=== PATIENT | female | born 1955 | race Caucasian/White ===

== ENCOUNTER 2018-08-18 09:37 | Observation (INO) ==
--- NOTE | 2018-08-18 10:17 | XRay Report ---
XR chest 1V portable CLINICAL HISTORY: 63 years-old Female presenting with weakness. TECHNIQUE: Portable upright AP view of the chest was obtained. COMPARISON: 05/25/2018. FINDINGS: Atherosclerosis of the aortic arch. Cardiac silhouette enlarged. No focal opacity. No large effusion or pneumothorax. Degenerative changes of the thoracic spine. Degenerative changes of the glenohumeral joints. Osteopenia may be present. Upper abdomen normal. IMPRESSION: 1. No acute cardiopulmonary disease. Electronically signed by: Michael Christine M.D. 08/18/2018 10:16 AM
[2018-08-18] MEDS ORDERED: diazePAM 5 MG TABLET PO ONE (10:25)
[2018-08-18 10:29] LABS: Basophils # (auto) 0.02 K/uL (0-0.2); Basophils % (auto) 0.3 %; Eosinophils # (auto) 0.02 K/uL (0-0.5); Eosinophils % (auto) 0.3 %; Hematocrit (blood only) 33.5 % (37-47); Hemoglobin 11.3 g/dL (12.0-16.0); Immature Granulocytes # (auto) 0.03 K/uL (0.00-0.02); Immature Granulocytes % (auto) 0.4 %; Lymphocytes # (auto) 0.32 K/uL (1.2-3.4); Lymphocytes % (auto) 4.7 %; Mean Corpuscular Hgb Conc 33.7 g/dL (32-36); Mean Corpuscular Volume 104.7 fL (80-100); Mean Platelet Volume 9.5 fL (7.4-10.4); Monocytes # (auto) 0.71 K/uL (0.11-0.59); Monocytes % (auto) 10.3 %; Neutrophils # (auto) 5.76 K/uL (1.4-6.5); Platelet Count 109 K/uL (130-400); RDW Coefficient of Variation 13.4 % (11.5-14.5); RDW Standard Deviation 50.7 fL (36.4-46.3); White Blood Count 6.86 K/uL (4.8-10.8)
[2018-08-18] MEDS ORDERED: MULTI-VITAMIN INFUSION 10 ML, THIAMINE HCL 100 MG, FOLIC ACID 1 MG in SODIUM CHLORIDE 0... IV SCH ×2 (10:30→10:45)
[2018-08-18] MEDS ORDERED: DIAZEPAM 5 MG/ML INJ 10ML VIAL IV STA (10:34)
[2018-08-18 10:38] LABS: INR 1.1 (0.9-1.1); Prothrombin Time 11.1 Seconds (9.0-12.0)
--- NOTE | 2018-08-18 10:41 | Emergency Department Note ---
ED Visit Note I assisted Dr. Nation in the care of the patient. See attending note for more information. . Resident Activity Tracking Resident Involvement: Resident Care Provided Care Provided: Adult ED
[2018-08-18 10:47] LABS: Alanine Aminotransferase 58 U/L (12-78); Albumin Level 2.9 gm/dl (3.4-5.0); Aspartate Aminotransferase 81 U/L (15-37); Blood Urea Nitrogen 12 mg/dl (7-18); Calcium 8.5 mg/dl (8.5-10.1); Carbon Dioxide 26 mmol/L (21-32); Chloride 95 mmol/L (98-107); Est GFR (African American) 72.8; Est GFR (Non-African American) 62.9; Glucose 158 mg/dl (70-99); Magnesium 1.8 mg/dl (1.8-2.4); Potassium 3.5 mmol/L (3.5-5.1); Sodium 133 mmol/L (136-145)
[2018-08-18 10:57] LABS: Albumin Globulin Ratio 0.6 (0.9-2); Alkaline Phosphatase 251 U/L (45-117); Bilirubin,Total 1.7 mg/dl (0.2-1); Globulin 4.7 gm/dl (2.5-4.0); Total Protein 7.6 gm/dl (6.4-8.2); Troponin I < 0.015 ng/ml (0-0.045)
--- NOTE | 2018-08-18 13:13 | CT Scan Report ---
CT head/brain wo con CLINICAL HISTORY: 63 years-old Female presenting with weakness, falls. TECHNIQUE: Multidetector CT imaging of the head was performed without the use of intravenous contrast . IV contrast: None. One or more dose lowering techniques were used consistent with the principles of ALARA (as low as reasonably achievable), including automatic exposure control, mA or kV adjustment t o individual patient size, and/or use of iterative reconstruction. COMPARISON: None. CT DOSE (mGy.cm): The estimated cumulative dose is 537.48 mGy.cm. FINDINGS: Reconciler topogram: Unremarkable. Proportional ventricular and sulcal prominence, likely age-related parenchymal volume loss. No hemorr cris. Brain parenchyma normal in appearance with preserved gibson-white differentiation. No acute alejandrina torial infarct. No mass effect or midline shift. No extra-axial fluid collection. Paranasal sinuses a nd mastoid air cells clear. Calvarium intact. IMPRESSION: 1. No acute intracranial abnormality. Electronically signed by: Michael Christine M.D. 08/18/2018 1:12 PM
[2018-08-18] MEDS ORDERED: cephALEXin 500 MG CAP PO STA (13:19)
[2018-08-18 14:22] LABS: Appearance Urine Cloudy (Clear); Bacteria Urine Automated Negative (Negative); Bilirubin Urine Negative (Negative); Blood Urine Negative (Negative); Color Urine Yellow; Epithelial Cell Urine Auto >30 /lpf (0-5); Glucose Urine UA Negative (Negative); Ketones Urine Trace (Negative); Leukocyte Esterase Urine Trace (Negative); Nitrite Urine Negative (Negative); Protein Urine Negative (Negative); Urobilinogen Urine Negative (Negative)
[2018-08-18] MEDS ORDERED: cephALEXin 250 MG CAP PO ONE (14:32)
[2018-08-18 14:39] LABS: RBC Urine Automated 0-4 /hpf (0-4)
--- NOTE | 2018-08-18 14:44 | History & Physical Report ---
Date of Service August 18, 2018 Assessment & Plan (1) Ambulatory dysfunction: (2) Frequent falls: This is a 63-year-old female who has a significant past medical history of HTN, asthma, pre-DM, history of splenic artery aneurysm status post coil closure with stent placement 05/17/2018, history of EtOH abuse, Elevated transaminitis, thrombocytopenia, diastolic dysfunction who presents to [facility] ED secondary to difficulty with ambulation x24 hours and frequent falls x1 month. Please refer to Dr. Sexton addendum for assessment and plan (3) Alcohol abuse: (4) HTN (hypertension): (5) Macrocytic anemia: (6) Thrombocytopenia: (7) Transaminitis: (8) Asthma: (9) DVT prophylaxis: History of Present Illness Chief Complaint: Difficulty walking x1 day; frequent falls x1 month. Primary Care Provider: Comfort Mendoza DO This is a 63-year-old female who has a significant past medical history of HTN, asthma, pre-DM, history of splenic artery aneurysm status post coil closure with stent placement 05/17/2018, history of EtOH abuse, Elevated transaminitis, thrombocytopenia, diastolic dysfunction who presents to [facility] ED secondary to difficulty with ambulation x24 hours and frequent falls x1 month. Patient [place] and was having significant difficulty walking yesterday. She was unable to get up from the bed and even walk to the bathroom without significant assistance from her . Her symptoms are still present this morning therefore they opted to present to the ED. Currently is not at bedside. According to patient she has been having off-and-on difficulty with walking and frequent falls for the past month describing it as, "sporadic." For the past month she has been using a cane for assist device. She has 3 known falls in July. Also complains of significantly increased bruising since being started on Plavix in May as well as numerous lesions to her lower legs from the falls. She denies any recent illness, fever, chills, sweats, lightheadedness, dizziness, syncope, chest pain, shortness of breath, RINCON, palpitations, nausea, vomiting, hemoptysis, hematemesis, abdominal pain, diarrhea. Her last bowel movement was yesterday and she denies any melena, hematochezia. She has been urinating without difficulty. Denies any dysuria, hematuria, increased urgency or frequency with urination. Overall her appetite has been decreased for the past 24 hours. She feels her symptoms are secondary to her not eating and states her appetite has returned and is requesting food. She denies any illicit alcohol or drug use. She says her last drink was one glass of wine approximately 1 month ago. She elicits that she was hospitalized November 2017 with pancreatitis and at that time opted to cut down on her drinking. A proximally 1 year ago she states she was drinking 1 to 2 glasses of wine daily. According to report from Dr. Carlson, encountered provider outside of room and feels that patient is not being truthful with her drinking. It is reported that he feels that she has been sneaking or closet drinking. In ED patient's lab studies were significant for macrocytic anemia H&H 11.3 and 33.5, WBC 6.86, platelet 109, sodium 133, potassium 3.5, BUN 12, creatinine 0.95, T bili 1.7, AST 81, alk phos 258, lipase 45, TSH WNL, urinalysis with trace leukocyte esterase, WBC, epithelial cells, EtOH negative. Head CT and chest x-ray were performed and revealed no acute abnormality. Allergies Allergy/AdvReac Type Severity Reaction Status Date / Time No Known Allergies Allergy Unverified 08/18/18 10:38 Home Medications Home Medications Medication Instructions Recorded Confirmed Type Centrum Silver Women 1 tab PO QAM 12/05/17 08/18/18 History cetirizine [Zyrtec] 10 mg PO DAILY PRN 12/05/17 08/18/18 History fluticasone propion-salmeterol 1 inh INHALATION BID 12/05/17 08/18/18 History [Advair Diskus] triamterene-hydrochlorothiazid 1 tab PO DAILY 12/05/17 08/18/18 History [Maxzide] albuterol sulfate 1 puff INHALATION DIRECTED PRN 05/25/18 08/18/18 History calcium carbonate-vitamin D3 1 tab PO DAILY 05/25/18 08/18/18 History [Calcium 600 + D(3)] clopidogrel 75 mg PO QAM 05/25/18 08/18/18 History simvastatin 20 mg PO HS 05/25/18 08/18/18 History verapamil 360 mg PO DAILY 08/18/18 08/18/18 History Past Med/Surg History Medical History Diastolic dysfunction (Chronic) Macrocytic anemia (Chronic) Thrombocytopenia (Chronic) Pre-diabetes (Chronic) Alcohol dependence (Chronic) Frequent falls (Chronic) Osteoarthritis (Chronic) Asthma (Chronic) Transaminitis (Chronic) HTN (hypertension) (Chronic) Surgical History History of breast biopsy (Chronic) History of tubal ligation (Chronic) Previous section (Resolved) Family History Father , age 49 Coronary heart disease, Onset Age: 49 Mother Glaucoma Other Heart disease Social History Preferred Language: Hebrew Communication Ability: Effective Beliefs That Will Affect Care: Pentecostalism Pentecostalism Beliefs: Gnosticist Current Living Situation: Spouse Feels Safe at Home: Yes Smoking Status: Never smoker Hx Alcohol Use: Yes Alcohol type: wine Alcohol Intake Frequency Comment: last drink 1 month ago per pt; prior etoh abuser Hx Substance Use: No Review of Systems Review of Systems: As noted per HPI, 10 systems reviewed and negative unless noted above. Physical Exam Physical Exam: Gen: Petite, thin, female, sitting up in bed, NAD, flat affect, answers questions appropriately Head: Normocephalic, Atraumatic Eyes: Sclera normal, no conjunctival injection, PERRLA, EOMI ENT: Gross hearing intact, normal pharynx, mucous membranes moist Neck: supple, no adenopathy, No JVD, no bruit, Resp: Clear to auscultation b/l, no wheeze, rales, rhonchi. 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 Extremities: No edema bilaterally Skin: warm, moist, no rash, negative turgor, cap refill < 2sec, bilateral distal lower extremity numerous skin tears along lateral gastrocnemius and tibial surface in various stages of healing, surrounding erythema, no warmth Neuro: Alert and oriented x 3, speech normal, flat mood/affect, cran nerve 2-12 intact grossly : deferred Results & Data Vital Signs (Past 12 Hours) Vital Signs Temp Pulse Pulse Resp BP BP Pulse Ox 08/18/18 11:43 79 21 117/76 99 08/18/18 11:26 85 18 100 08/18/18 09:40 37.0 C 97 H 22 131/79 100 Laboratory Results Short CBC 08/18/18 08/18/18 08/18/18 Range/Units 10:18 10:18 10:18 WBC 6.86 (4.8-10.8) K/uL Hgb 11.3 L (12.0-16.0) g/dL Hct 33.5 L (37-47) % MCV 104.7 H (80-100) fL Plt Count 109 L (130-400) K/uL Sodium 133 L (136-145) mmol/L Creatinine 0.95 (0.6-1.2) mg/dl Lipase 485 H (73-393) U/L BMP 08/18/18 10:18 Sodium 133 L Potassium 3.5 Chloride 95 L Carbon Dioxide 26 BUN 12 Creatinine 0.95 Glucose 158 H Calcium 8.5 Cardiac Enzymes 08/18/18 Range/Units 10:18 Troponin I < 0.015 (0-0.045) ng/ml Liver Function 08/18/18 Range/Units 10:18 Total Bilirubin 1.7 H (0.2-1) mg/dl AST 81 H (15-37) U/L ALT 58 (12-78) U/L Alkaline Phosphatase 251 H (45-117) U/L Albumin 2.9 L (3.4-5.0) gm/dl Urine 08/18/18 Range/Units 13:30 Urine Color Yellow Urine Appearance Cloudy A (Clear) Urine pH 7.0 (4.5-7.5) Ur Specific Gilman 1.010 (1.000-1.030) Urine Protein Negative (Negative) Urine Glucose (UA) Negative (Negative) Diagnostic Findings Head CT: IMPRESSION: 1. No acute intracranial abnormality. CXR: IMPRESSION: 1. No acute cardiopulmonary disease. Medications Administered Discontinued Medications Cephalexin HCl (Keflex) 500 mg PO NOW STA Stop: 08/18/18 13:20 Last Admin: 08/18/18 14:38 Dose: 500 mg Documented by: [id number] Cephalexin HCl (Keflex) Confirm Administered Dose 500 mg PO .STK-MED ONE Stop: 08/18/18 14:33 Last Admin: 08/18/18 14:39 Dose: Not Given Documented by: [id number] Diazepam (Valium) 10 mg PO NOW ONE Stop: 08/18/18 10:26 Last Admin: 08/18/18 11:06 Dose: 10 mg Documented by: [id number] Diazepam (Valium) 10 mg IV NOW STA Stop: 08/18/18 10:35 Last Admin: 08/18/18 12:54 Dose: Not Given Documented by: [id number] Multivitamins 10 ml/ Thiamine HCl 100 mg/ Folic Acid 1 mg/Sodium Chloride 1,011.2 mls @ 1,011.2 mls/hr IV .Q1H KRISTINA Stop: 08/18/18 11:29 Last Infusion: 08/18/18 12:15 Dose: 0 mls/hr Documented by: [id number] Admin: 08/18/18 11:11 Dose: 1,011.2 mls/hr Documented by: [id number] Multivitamins 10 ml/ Thiamine HCl 100 mg/ Folic Acid 1 mg/Sodium Chloride 1,011.2 mls @ 1,011.2 mls/hr IV .Q1H KRISTINA Stop: 08/18/18 11:44 Last Admin: 08/18/18 12:54 Dose: Not Given Documented by: [id number] ECG Rate (beats per minute): 83 Rhythm: normal sinus Findings: + prolonged QT (488) Code Status & VTE Plan Code Status Full Code VTE Prophylaxis Plan Reason for no VTE drug order: Contraindicated (pt with freq falls numerous areas of bruising) Supervising Physician Co-Signing Physician Notes Patient was seen and evaluated with PAUL Castillo. Patient is a 63 year old F with hx of HTN, Asthma, Splenic artery aneurysm s/p coil closure with stent placement on 05/17/18, hx of Alcohol abuse, diastolic dysfunction, was brought in to ED by for generalized weakness- worse x 24 hours, frequent falls x 1 month Patient has hx of alcoholism for years (mostly in denial phase), says her last drink was 1 month ago, but thinks she might be drinking some of his myla. C/o Frequent falls with bruises in last month. Says she feels off balance, generalized weakness which makes her fall. Unable to get up by herself when this happens. [place] family at their vacation home when she felt the same and brought her to ED. Shaky, tremors + . Doesnt seem like localized weakness. No fever, chills, nausea, vomiting, abdominal pain, headaches, sensory loss, urinary or bladder incontinence, blurry vision. EXAM Gen- Tremulous + Shaky +, AAAX3 HEENT- No icterus apparent Neck- No JVD Lungs- Clear, no wheezing Heart- S1, S2 normal Abd- Soft, non tender, non distended, BS present Neuro- AAOX3, Power 5/5 all ext, Cranial nerves intact, no sensory issues Ext- No edema Skin- Multiple bruises, ecchymosis all over the extremities B/L Lower extremities- Left - Ulcer with slough + mild tenderness surrounding area, Multiple wounds in right coburn area S/P Falls ASSESSMENT/ PLAN: FREQUENT FALLS/GENERALIZED WEAKNESS Patient is a poor historian. Has hx of alcoholism (says last drink a month ago, but per concerned that she continues to sip his myla). Unreliable history. Does have significant tremors, shakiness . Has had 3 falls last month- says feels out of balance, weakness to extent that unable to hold herself causing fall. Denies any associated symptoms. No neurological deficits -Etiology of Fall- Unclear. Could be Alcoholism- Intoxication/Withdrawal ? as unreliable whether quit or not. CT head- negative for acute abn, Less likely to be stroke given presentation but will rule out as poor historian. MRI brain ordered. -Ordered- MRI brain, Vit b12, b1, ESR, CRP -IV Fluids- Received banana bag, MV, Folic acid, thiamine -PT/OT MULTIPLE BRUISES/ECCHYMOSIS/WOUNDS FROM FALLS -All over extremities -B/L Lower extremity wounds- ED gave keflex. Will empirically continue with Keflex and local wound care to help healing ALCOHOLISM For years. Quit a month ago per patient, but per likely not. -Elevated LFTs with ALP 251, Albumin 2.9, INR 1.1. -Per patient - fatty liver. Will repeat US abdomen and add direct bilirubin THROMBOCYTOPENIA Chronic sec to alcoholism Near baseline -Monitor HTN -Continue with triamterene/HCTZ, for now due to borderline low BP -Continue with verapamil 360 mg daily -Monitor HX OF SPLENIC ANEURYSM S/P COIL CLOSURE On 05/17/18 -On plavix since than - continue ASTHMA -No exacerbation -Advair BID DVT PROPHYLAXIS SCDS RE: Thrombocytopenia DISPOSITION Admit to med surg telemetry PT/OT ordered
--- NOTE | 2018-08-18 16:15 | Emergency Department Note ---
Entered by Kelly Scott acting as a scribe for Gloria Nation MD History of Present Illness General Chief complaint: Weakness Stated complaint: UNSTABLE,BARELY WALK Time Seen by Provider: 08/18/18 09:49 Source: patient History of Present Illness Onset (ago): week(s) 2 Location: head Pain Consistency: + other (persistent) Quality: + other (weakness) Associated symptoms: + denies other symptoms (headache, abdominal pain, hematochezia, vertigo, head trauma, confusion, nausea, vomiting) and + other (falls, loss of appetite, lack of strength, bruises on legs, instablity) The patient is a 63 year old female with a history of hypertension, pancreati tis, and splenic artery aneurysm that is presenting to the Emergency Room with complaints of worsening weakness that started 2 weeks ago. The patient reports that she has no strength and that she has lost her appetite. She notes that she has not eaten in the past 24 hours. She states that she is intermittently shaky. She notes that she is unstable when walking. She reports that she had to have help walking to the bathroom last night, which is unusual for her. She notes that she is using a walker that she borrowed from a neighbor. She states that she has fallen multiple times with her last fall occurring 2 weeks ago. She notes that she falls mostly on her legs and that she has bruises and cuts on her bilateral legs as a result. She denies any head trauma during these falls. She denies any headache, confusion, abdominal pain, hematochezia, nausea,vomiting, or vertigo. She notes that she was diagnosed with diabetes, but she states that it is well-controlled by diet alone. The patient notes that she has a history of alcohol abuse but states that her last alcoholic drink was 2 weeks ago but then states that it was one month ago. She reports that she takes Plavix for her aneurysm. Home Medications Home Medications Medication Instructions Recorded Confirmed Type Centrum Silver Women 1 tab PO QAM 12/05/17 08/18/18 History cetirizine [Zyrtec] 10 mg PO DAILY PRN 12/05/17 08/18/18 History fluticasone propion-salmeterol 1 inh INHALATION BID 12/05/17 08/18/18 History [Advair Diskus] triamterene-hydrochlorothiazid 1 tab PO DAILY 12/05/17 08/18/18 History [Maxzide] albuterol sulfate 1 puff INHALATION DIRECTED PRN 05/25/18 08/18/18 History calcium carbonate-vitamin D3 1 tab PO DAILY 05/25/18 08/18/18 History [Calcium 600 + D(3)] clopidogrel 75 mg PO QAM 05/25/18 08/18/18 History simvastatin 20 mg PO HS 05/25/18 08/18/18 History verapamil 360 mg PO DAILY 08/18/18 08/18/18 History cephalexin 500 mg PO QID 3 Days #12 cap 08/20/18 Rx folic acid 1 mg PO DAILY #30 tab 08/20/18 Rx gabapentin 600 mg PO Q24H 5 Days #5 tab 08/20/18 Rx potassium chloride 20 meq PO DAILY #5 tab 08/20/18 Rx thiamine HCl (vitamin B1) [Vitamin 100 mg PO QAM 30 Days #30 tab 08/20/18 Rx B-1] Allergies Allergy/AdvReac Type Severity Reaction Status Date / Time No Known Allergies Allergy Unverified 08/18/18 10:38 Past Med/Surg History Medical History Diastolic dysfunction (Chronic) Macrocytic anemia (Chronic) Thrombocytopenia (Chronic) Pre-diabetes (Chronic) Alcohol dependence (Chronic) Frequent falls (Chronic) Osteoarthritis (Chronic) Asthma (Chronic) Transaminitis (Chronic) HTN (hypertension) (Chronic) Surgical History History of breast biopsy (Chronic) History of tubal ligation (Chronic) Previous section (Resolved) Family History Father , age 49 Coronary heart disease, Onset Age: 49 Mother Glaucoma Other Heart disease Social History Preferred Language: Belarusian Communication Ability: Effective Branch Operations Coordinator Required: No Beliefs That Will Affect Care: Protestant Protestant Beliefs: Jewish marital status: Current Living Situation: Spouse Feels Safe at Home: Yes Safety Concerns: Feels Safe At This Time Smoking Status: Never smoker Hx Alcohol Use: No (denies using any etoh, reports having quit) Hx Substance Use: No Review of Systems See HPI for pertinent positives & negatives. and A total of 10 systems reviewed and were otherwise negative Physical Exam Vital Signs Vital Signs - 24 hr 08/18/18 09:40 08/18/18 11:26 08/18/18 11:43 Temperature 37.0 C Temperature Source Oral Sepsis Recent Fever Within 48 Hours No Sepsis Action Taken by Nursing No Action Required Pulse Rate 97 H 85 Pulse Rate [Apical] 79 Pulse Rhythm Regular Regular Pulse Rhythm [Apical] Regular Pulse Strength Normal Pulse Strength [Apical] Normal Respiratory Rate 22 18 21 Respiratory Effort / Characteristics Non-Labored Non-Labored Spontaneous Respiratory Depth Normal Normal Respiratory Pattern Regular Blood Pressure 131/79 Blood Pressure [Right Arm] 117/76 Blood Pressure Mean 96 Blood Pressure Mean [Right Arm] 89 Blood Pressure Position Sitting Blood Pressure Position [Right Arm] Lying Pulse Oximetry 100 100 99 Oxygen Delivery Method Room Air Room Air Room Air 08/18/18 14:30 Temperature Temperature Source Sepsis Recent Fever Within 48 Hours Sepsis Action Taken by Nursing Pulse Rate Pulse Rate [Apical] 84 Pulse Rhythm Pulse Rhythm [Apical] Regular Pulse Strength Pulse Strength [Apical] Normal Respiratory Rate 17 Respiratory Effort / Characteristics Non-Labored Accessory Muscle Use Respiratory Depth Normal Respiratory Pattern Regular Blood Pressure Blood Pressure [Right Arm] 142/87 H Blood Pressure Mean Blood Pressure Mean [Right Arm] 105 Blood Pressure Position Blood Pressure Position [Right Arm] Sitting Pulse Oximetry 100 Oxygen Delivery Method Room Air Vital signs reviewed. General: Well-appearing older female, in no significant distress. HEENT: No scleral icterus, PERRLA, neck supple. Cardiovascular: Regular rate and rhythm, no extra sounds. Pulmonary: Clear to auscultation bilaterally, normal work of breathing. Abdomen: Soft, nontender, nondistended, positive bowel sounds. Musculoskeletal: Atraumatic, no peripheral edema. Neurologic: Patient awake alert and oriented x 3, full strength in all 4 extremities. Cranial nerves 2 through 12 grossly intact. Baseline tremor. Able to follow commands. Answers questions appropriately. Skin: Warm, dry, no rash. Multiple contusion/eccyhmotic areas to bilateral upper and lower extremities. Several large healing skin tears that are scabbed with surrounding erythema and no drainage. There is a large skin tear on the left calf and several to the right anterior coburn. Course 0957: The patient was seen and evaluated by the Resident Physician at this time. History and physical were discussed with me. 1022:The patient was evaluated in room A04B. A complete history and physical examination was performed. 1043: I revisited the patient at this time. She is resting comfortably. 1200: I updated the patient on her current lab and imaging results. 1330: The patient was offered by [facility] at this time. I aided the patient to the bathroom. She was unable to walk on her own without a two-person assist. 1359: I discussed the patients case with PAUL Childress, who will evaluate the patient for further management and care. 1405: Upon reevaluation, the patient is resting comfortably. I discussed laboratory and radiographic results with the patient. She verbalized agreement of the treatment plan. The patient will be evaluated for further management and care. Consultations Consultation #1: I discussed the patients case with PAUL Childress, who will evaluate the patient for further management and care. Time: 13:59 Administered Medications Discontinued Medications Acetaminophen (Tylenol) 650 mg PO Q4H PRN PRN Reason: Pain or Fever Stop: 09/17/18 16:40 Last Admin: 08/19/18 23:28 Dose: 650 mg Documented by: [id number] Cephalexin HCl (Keflex) 500 mg PO NOW STA Stop: 08/18/18 13:20 Last Admin: 08/18/18 14:38 Dose: 500 mg Documented by: [id number] Cephalexin HCl (Keflex) Confirm Administered Dose 500 mg PO .STK-MED ONE Stop: 08/18/18 14:33 Last Admin: 08/18/18 14:39 Dose: Not Given Documented by: [id number] Cephalexin HCl (Keflex) 500 mg PO QID KRISTINA Stop: 08/23/18 16:59 Last Admin: 08/20/18 12:18 Dose: 500 mg Documented by: [id number] Admin: 08/20/18 08:17 Dose: 500 mg Documented by: [id number] Admin: 08/19/18 21:07 Dose: 500 mg Documented by: [id number] Admin: 08/19/18 17:36 Dose: 500 mg Documented by: [id number] Admin: 08/19/18 13:04 Dose: 500 mg Documented by: [id number] Admin: 08/19/18 07:44 Dose: 500 mg Documented by: [id number] Admin: 08/18/18 20:29 Dose: 500 mg Documented by: [id number] Admin: 08/18/18 17:46 Dose: 500 mg Documented by: [id number] Clopidogrel Bisulfate (Plavix) 75 mg PO QAM [facility] Stop: 09/18/18 08:59 Last Admin: 08/20/18 08:15 Dose: 75 mg Documented by: [id number] Admin: 08/19/18 07:43 Dose: 75 mg Documented by: [id number] Diazepam (Valium) 10 mg PO NOW ONE Stop: 08/18/18 10:26 Last Admin: 08/18/18 11:06 Dose: 10 mg Documented by: [id number] Diazepam (Valium) 10 mg IV NOW STA Stop: 08/18/18 10:35 Last Admin: 08/18/18 12:54 Dose: Not Given Documented by: [id number] Gabapentin (Neurontin) 1,200 mg PO TODAY@1700 [facility] Stop: 08/18/18 17:01 Last Admin: 08/18/18 17:45 Dose: 1,200 mg Documented by: [id number] Gabapentin (Neurontin) 600 mg PO Q6H [facility] Stop: 08/19/18 06:01 Last Admin: 08/19/18 05:33 Dose: 600 mg Documented by: [id number] Admin: 08/18/18 23:27 Dose: 600 mg Documented by: [id number] Gabapentin (Neurontin) 600 mg PO Q8H [facility] Stop: 08/20/18 06:01 Last Admin: 08/20/18 05:45 Dose: 600 mg Documented by: [id number] Admin: 08/19/18 21:10 Dose: 600 mg Documented by: [id number] Admin: 08/19/18 13:04 Dose: 600 mg Documented by: [id number] Multivitamins 10 ml/ Thiamine HCl 100 mg/ Folic Acid 1 mg/Sodium Chloride 1,011.2 mls @ 1,011.2 mls/hr IV .Q1H [facility] Stop: 08/18/18 11:29 Last Infusion: 08/18/18 12:15 Dose: 0 mls/hr Documented by: [id number] Admin: 08/18/18 11:11 Dose: 1,011.2 mls/hr Documented by: [id number] Multivitamins 10 ml/ Thiamine HCl 100 mg/ Folic Acid 1 mg/Sodium Chloride 1,011.2 mls @ 1,011.2 mls/hr IV .Q1H [facility] Stop: 08/18/18 11:44 Last Admin: 08/18/18 12:54 Dose: Not Given Documented by: [id number] Sodium Chloride (Nss 1000ml) 1,000 mls @ 80 mls/hr IV .[id number] [facility] Stop: 08/19/18 05:10 Last Infusion: 08/19/18 06:17 Dose: 0 mls/hr Documented by: [id number] Admin: 08/18/18 17:44 Dose: 80 mls/hr Documented by: [id number] Insulin Aspart (Novolog Per Unit) 10 units SC NOW ONE Stop: 08/20/18 13:01 Last Admin: 08/20/18 13:05 Dose: 10 units Documented by: [id number] Cosigned by: [id number] Multivitamins/Minerals (Caltrate Plus) 1 tab PO DAILY [facility] Stop: 09/18/18 08:59 Last Admin: 08/20/18 08:16 Dose: 1 tab Documented by: [id number] Admin: 08/19/18 07:43 Dose: 1 tab Documented by: [id number] Multivitamins/Minerals (Multivitamin W/ Minerals Tab) 1 tab PO QAM [facility] Stop: 09/18/18 08:59 Last Admin: 08/20/18 08:15 Dose: 1 tab Documented by: [id number] Admin: 08/19/18 07:43 Dose: 1 tab Documented by: [id number] Potassium Chloride (Klor-Con M10) 40 meq PO NOW STA Stop: 08/19/18 08:30 Last Admin: 08/19/18 09:16 Dose: 40 meq Documented by: [id number] Potassium Chloride (Klor-Con M20) 40 meq PO TODAY@0915 KRISTINA Stop: 08/20/18 09:16 Last Admin: 08/20/18 10:28 Dose: 40 meq Documented by: [id number] Fluticasone/Salmeterol (Advair Diskus 250/50) 1 puffs INH BID [facility] Stop: 09/17/18 20:59 Last Admin: 08/20/18 08:15 Dose: 1 puffs Documented by: [id number] Admin: 08/19/18 21:06 Dose: 1 puffs Documented by: [id number] Admin: 08/19/18 07:43 Dose: 1 puffs Documented by: [id number] Admin: 08/18/18 20:28 Dose: Not Given Documented by: [id number] Simvastatin (Zocor) 20 mg PO HS KRISTINA Stop: 09/17/18 20:59 Last Admin: 08/19/18 21:08 Dose: 20 mg Documented by: [id number] Admin: 08/18/18 20:29 Dose: 20 mg Documented by: [id number] Thiamine HCl (Vitamin B-1) 100 mg PO QAM KRISTINA Stop: 09/18/18 08:59 Last Admin: 08/20/18 08:17 Dose: 100 mg Documented by: [id number] Admin: 08/19/18 07:43 Dose: 100 mg Documented by: [id number] Thiamine HCl (Vitamin B-1) 100 mg PO 1700 ONE Stop: 08/18/18 17:01 Last Admin: 08/18/18 17:46 Dose: 100 mg Documented by: [id number] Triamterene/HCTZ (Maxzide 37.5/25mg) 1 tab PO DAILY KRISTINA Stop: 09/18/18 08:59 Last Admin: 08/20/18 08:16 Dose: 1 tab Documented by: [id number] Admin: 08/19/18 07:43 Dose: 1 tab Documented by: [id number] Verapamil HCl (Calan Sr) 360 mg PO DAILY KRISTINA Stop: 09/18/18 08:59 Last Admin: 08/20/18 08:16 Dose: 360 mg Documented by: [id number] Admin: 08/19/18 07:43 Dose: 360 mg Documented by: [id number] Medical Decision Making Differential Diagnosis Differential diagnosis: Etiologies such as metabolic, infection, hypo/hyperglycemia, electrolyte abnormalities, cardiac sources, intracerebral event, toxicologic, neurologic, as well as others were entertained. Medical Records Attestation: I reviewed the patient's medical records. Home Medications Current Medication List: was personally reviewed by me Laboratory Data Attestation: I reviewed the patient's lab results. Result diagrams: 08/20/18 07:11 08/20/18 07:11 Lab Results 08/18/18 08/18/18 08/18/18 Range/Units 10:18 10:18 10:18 WBC 6.86 (4.8-10.8) K/uL RBC 3.20 L (4.2-5.4) M/uL Hgb 11.3 L (12.0-16.0) g/dL Hct 33.5 L (37-47) % MCV 104.7 H (80-100) fL MCH 35.3 H (25-34) pg MCHC 33.7 (32-36) g/dL RDW Std Deviation 50.7 H (36.4-46.3) fL RDW Coeff of Concepcion 13.4 (11.5-14.5) % Plt Count 109 L (130-400) K/uL MPV 9.5 (7.4-10.4) fL Immature Gran % (Auto) 0.4 % Neut % (Auto) 84.0 % Lymph % (Auto) 4.7 % [place] % (Auto) 10.3 % Eos % (Auto) 0.3 % Baso % (Auto) 0.3 % Immature Gran # (Auto) 0.03 H (0.00-0.02) K/uL Neut # (Auto) 5.76 (1.4-6.5) K/uL Lymph # (Auto) 0.32 L (1.2-3.4) K/uL [place] # (Auto) 0.71 H (0.11-0.59) K/uL Eos # (Auto) 0.02 (0-0.5) K/uL Baso # (Auto) 0.02 (0-0.2) K/uL ESR (0-21) mm/hr PT 11.1 (9.0-12.0) Seconds INR 1.1 (0.9-1.1) Sodium 133 L (136-145) mmol/L Potassium 3.5 (3.5-5.1) mmol/L Chloride 95 L (98-107) mmol/L Carbon Dioxide 26 (21-32) mmol/L Anion Gap 12.0 H (3-11) BUN 12 (7-18) mg/dl Creatinine 0.95 (0.6-1.2) mg/dl Est Cr Clr Drug Dosing Not Reportable Est GFR ( Amer) 72.8 Est GFR (Non-Af Amer) 62.9 BUN/Creatinine Ratio 13.0 (10-20) Glucose 158 H (70-99) mg/dl Calcium 8.5 (8.5-10.1) mg/dl Magnesium 1.8 (1.8-2.4) mg/dl Total Bilirubin 1.7 H (0.2-1) mg/dl Direct Bilirubin AST 81 H (15-37) U/L ALT 58 (12-78) U/L Alkaline Phosphatase 251 H (45-117) U/L Troponin I < 0.015 (0-0.045) ng/ml C-Reactive Protein (0-0.29) mg/dl Total Protein 7.6 (6.4-8.2) gm/dl Albumin 2.9 L (3.4-5.0) gm/dl Globulin 4.7 H (2.5-4.0) gm/dl Albumin/Globulin Ratio 0.6 L (0.9-2) Lipase (73-393) U/L TSH 4.150 (0.300-4.500) uIu/ml Urine Color Urine Appearance (Clear) Urine pH (4.5-7.5) Ur Specific [place] (1.000-1.030) Urine Protein (Negative) Urine Glucose (UA) (Negative) Urine Ketones (Negative) Urine Blood (Negative) Urine Nitrite (Negative) Urine Bilirubin (Negative) Urine Urobilinogen (Negative) Ur Leukocyte Esterase (Negative) Urine WBC (Auto) (0-5) /hpf Urine RBC (Auto) (0-4) /hpf U Hyaline Cast (Auto) (0-5) /lpf U Epithel Cells (Auto) (0-5) /lpf Urine Bacteria (Auto) (Negative) Ethyl Alcohol mg/dL (0-3) mg/dl Blood Type Antibody Screen 08/18/18 08/18/18 08/18/18 Range/Units 10:18 10:18 10:18 WBC (4.8-10.8) K/uL RBC (4.2-5.4) M/uL Hgb (12.0-16.0) g/dL Hct (37-47) % MCV (80-100) fL MCH (25-34) pg MCHC (32-36) g/dL RDW Std Deviation (36.4-46.3) fL RDW Coeff of Concepcion (11.5-14.5) % Plt Count (130-400) K/uL MPV (7.4-10.4) fL Immature Gran % (Auto) % Neut % (Auto) % Lymph % (Auto) % [place] % (Auto) % Eos % (Auto) % Baso % (Auto) % Immature Gran # (Auto) (0.00-0.02) K/uL Neut # (Auto) (1.4-6.5) K/uL Lymph # (Auto) (1.2-3.4) K/uL [place] # (Auto) (0.11-0.59) K/uL Eos # (Auto) (0-0.5) K/uL Baso # (Auto) (0-0.2) K/uL ESR (0-21) mm/hr PT (9.0-12.0) Seconds INR (0.9-1.1) Sodium (136-145) mmol/L Potassium (3.5-5.1) mmol/L Chloride (98-107) mmol/L Carbon Dioxide (21-32) mmol/L Anion Gap (3-11) BUN (7-18) mg/dl Creatinine (0.6-1.2) mg/dl Est Cr Clr Drug Dosing Est GFR ( Amer) Est GFR (Non-Af Amer) BUN/Creatinine Ratio (10-20) Glucose (70-99) mg/dl Calcium (8.5-10.1) mg/dl Magnesium (1.8-2.4) mg/dl Total Bilirubin (0.2-1) mg/dl Direct Bilirubin Cancelled AST (15-37) U/L ALT (12-78) U/L Alkaline Phosphatase (45-117) U/L Troponin I (0-0.045) ng/ml C-Reactive Protein (0-0.29) mg/dl Total Protein (6.4-8.2) gm/dl Albumin (3.4-5.0) gm/dl Globulin (2.5-4.0) gm/dl Albumin/Globulin Ratio (0.9-2) Lipase 485 H (73-393) U/L TSH (0.300-4.500) uIu/ml Urine Color Urine Appearance (Clear) Urine pH (4.5-7.5) Ur Specific [place] (1.000-1.030) Urine Protein (Negative) Urine Glucose (UA) (Negative) Urine Ketones (Negative) Urine Blood (Negative) Urine Nitrite (Negative) Urine Bilirubin (Negative) Urine Urobilinogen (Negative) Ur Leukocyte Esterase (Negative) Urine WBC (Auto) (0-5) /hpf Urine RBC (Auto) (0-4) /hpf U Hyaline Cast (Auto) (0-5) /lpf U Epithel Cells (Auto) (0-5) /lpf Urine Bacteria (Auto) (Negative) Ethyl Alcohol mg/dL (0-3) mg/dl Blood Type O Negative Antibody Screen NEGATIVE 08/18/18 08/18/18 08/18/18 Range/Units 10:18 10:18 10:37 WBC (4.8-10.8) K/uL RBC (4.2-5.4) M/uL Hgb (12.0-16.0) g/dL Hct (37-47) % MCV (80-100) fL MCH (25-34) pg MCHC (32-36) g/dL RDW Std Deviation (36.4-46.3) fL RDW Coeff of Concpecion (11.5-14.5) % Plt Count (130-400) K/uL MPV (7.4-10.4) fL Immature Gran % (Auto) % Neut % (Auto) % Lymph % (Auto) % [place] % (Auto) % Eos % (Auto) % Baso % (Auto) % Immature Gran # (Auto) (0.00-0.02) K/uL Neut # (Auto) (1.4-6.5) K/uL Lymph # (Auto) (1.2-3.4) K/uL [place] # (Auto) (0.11-0.59) K/uL Eos # (Auto) (0-0.5) K/uL Baso # (Auto) (0-0.2) K/uL ESR 79 H (0-21) mm/hr PT (9.0-12.0) Seconds INR (0.9-1.1) Sodium (136-145) mmol/L Potassium (3.5-5.1) mmol/L Chloride (98-107) mmol/L Carbon Dioxide (21-32) mmol/L Anion Gap (3-11) BUN (7-18) mg/dl Creatinine (0.6-1.2) mg/dl Est Cr Clr Drug Dosing Est GFR ( Amer) Est GFR (Non-Af Amer) BUN/Creatinine Ratio (10-20) Glucose (70-99) mg/dl Calcium (8.5-10.1) mg/dl Magnesium (1.8-2.4) mg/dl Total Bilirubin (0.2-1) mg/dl Direct Bilirubin 0.8 H AST (15-37) U/L ALT (12-78) U/L Alkaline Phosphatase (45-117) U/L Troponin I (0-0.045) ng/ml C-Reactive Protein 3.40 H (0-0.29) mg/dl Total Protein (6.4-8.2) gm/dl Albumin (3.4-5.0) gm/dl Globulin (2.5-4.0) gm/dl Albumin/Globulin Ratio (0.9-2) Lipase (73-393) U/L TSH (0.300-4.500) uIu/ml Urine Color Urine Appearance (Clear) Urine pH (4.5-7.5) Ur Specific [place] (1.000-1.030) Urine Protein (Negative) Urine Glucose (UA) (Negative) Urine Ketones (Negative) Urine Blood (Negative) Urine Nitrite (Negative) Urine Bilirubin (Negative) Urine Urobilinogen (Negative) Ur Leukocyte Esterase (Negative) Urine WBC (Auto) (0-5) /hpf Urine RBC (Auto) (0-4) /hpf U Hyaline Cast (Auto) (0-5) /lpf U Epithel Cells (Auto) (0-5) /lpf Urine Bacteria (Auto) (Negative) Ethyl Alcohol mg/dL < 3.0 (0-3) mg/dl Blood Type Antibody Screen 08/18/18 Range/Units 13:30 WBC (4.8-10.8) K/uL RBC (4.2-5.4) M/uL Hgb (12.0-16.0) g/dL Hct (37-47) % MCV (80-100) fL MCH (25-34) pg MCHC (32-36) g/dL RDW Std Deviation (36.4-46.3) fL RDW Coeff of Concepcion (11.5-14.5) % Plt Count (130-400) K/uL MPV (7.4-10.4) fL Immature Gran % (Auto) % Neut % (Auto) % Lymph % (Auto) % [place] % (Auto) % Eos % (Auto) % Baso % (Auto) % Immature Gran # (Auto) (0.00-0.02) K/uL Neut # (Auto) (1.4-6.5) K/uL Lymph # (Auto) (1.2-3.4) K/uL [place] # (Auto) (0.11-0.59) K/uL Eos # (Auto) (0-0.5) K/uL Baso # (Auto) (0-0.2) K/uL ESR (0-21) mm/hr PT (9.0-12.0) Seconds INR (0.9-1.1) Sodium (136-145) mmol/L Potassium (3.5-5.1) mmol/L Chloride (98-107) mmol/L Carbon Dioxide (21-32) mmol/L Anion Gap (3-11) BUN (7-18) mg/dl Creatinine (0.6-1.2) mg/dl Est Cr Clr Drug Dosing Est GFR ( Amer) Est GFR (Non-Af Amer) BUN/Creatinine Ratio (10-20) Glucose (70-99) mg/dl Calcium (8.5-10.1) mg/dl Magnesium (1.8-2.4) mg/dl Total Bilirubin (0.2-1) mg/dl Direct Bilirubin AST (15-37) U/L ALT (12-78) U/L Alkaline Phosphatase (45-117) U/L Troponin I (0-0.045) ng/ml C-Reactive Protein (0-0.29) mg/dl Total Protein (6.4-8.2) gm/dl Albumin (3.4-5.0) gm/dl Globulin (2.5-4.0) gm/dl Albumin/Globulin Ratio (0.9-2) Lipase (73-393) U/L TSH (0.300-4.500) uIu/ml Urine Color Yellow Urine Appearance Cloudy A (Clear) Urine pH 7.0 (4.5-7.5) Ur Specific [place] 1.010 (1.000-1.030) Urine Protein Negative (Negative) Urine Glucose (UA) Negative (Negative) Urine Ketones Trace H (Negative) Urine Blood Negative (Negative) Urine Nitrite Negative (Negative) Urine Bilirubin Negative (Negative) Urine Urobilinogen Negative (Negative) Ur Leukocyte Esterase Trace H (Negative) Urine WBC (Auto) 5-10 H (0-5) /hpf Urine RBC (Auto) 0-4 (0-4) /hpf U Hyaline Cast (Auto) 1-5 (0-5) /lpf U Epithel Cells (Auto) >30 H (0-5) /lpf Urine Bacteria (Auto) Negative (Negative) Ethyl Alcohol mg/dL (0-3) mg/dl Blood Type Antibody Screen Imaging Data Radiologist's Impression: Radiology results as stated below per my review and the radiologist's interpretation: XR chest 1V portable CLINICAL HISTORY: 63 years-old Female presenting with weakness. TECHNIQUE: Portable upright AP view of the chest was obtained. COMPARISON: 05/25/2018. FINDINGS: Atherosclerosis of the aortic arch. Cardiac silhouette enlarged. No focal opacity. No large effusion or pneumothorax. Degenerative changes of the thoracic spine. Degenerative changes of the glenohumeral joints. Osteopenia may be present. Upper abdomen normal. IMPRESSION: 1. No acute cardiopulmonary disease. Electronically signed by: Michael Christine M.D. 08/18/2018 10:[address] head/brain wo con CLINICAL HISTORY: 63 years-old Female presenting with weakness, falls. TECHNIQUE: Multidetector CT imaging of the head was performed without the use of intravenous contrast. IV contrast: None. One or more dose lowering techniques were used consistent with the principles of ALARA (as low as reasonably achievable), including automatic exposure control, mA or kV adjustment to individual patient size, and/or use of iterative reconstruction. COMPARISON: None. CT DOSE (mGy.cm): The estimated cumulative dose is 537.48 mGy.cm. FINDINGS: Fire Management Technician topogram: Unremarkable. Proportional ventricular and sulcal prominence, likely age-related parenchymal volume loss. No hemorrhage. Brain parenchyma normal in appearance with preserved gibson-white differentiation. No acute territorial infarct. No mass effect or midline shift. No extra-axial fluid collection. Paranasal sinuses and mastoid air cells clear. Calvarium intact. IMPRESSION: 1. No acute intracranial abnormality. Electronically signed by: Michael Christine M.D. 08/18/2018 1:12 PM ECG Data Attestation: I personally reviewed and interpreted this ECG as follows: Indication: weakness Rate (beats per minute): 83 Rhythm: normal sinus Findings: + other (QTC 488); no PAC, no PVC, no ST depression, no ST elevation, no acute ischemic change and no ectopy Blood Pressure Blood Pressure Findings: Normal blood pressure MDM Narrative This patient was evaluated and appeared to be in no significant distress. IV access was obtained and laboratory work was drawn. Patient's vital signs have remained stable. Patient is noted to be shaky. Valium 10 mg p.o. was ordered which made the patient "feel better" but did not change the shaking. Patient's confirms that she has had this for several years. Patient denies any alcohol within the last month however the patient's states she has been "sneaking my myla." Patient was given a banana bag. She has been given p.o. Keflex. Patient was unable to make it to the bathroom without a significant 2 person assist. She has had multiple falls over the last several weeks. CT scan of the head was performed and is negative. Chest x-ray is also negative. Patient will be evaluated by the hospitalist service for further management and consideration of PT/OT consult. Patient and are aware of the plan and agree. Impression & Plan Physical deconditioning, Alcohol dependence, Frequent falls Discharge Plan Visit Data *Final* Discharge Date/Time: 08/18/18 15:53 Chief Complaint: Weakness Stated Complaint: UNSTABLE,BARELY WALK ED Provider: [facility] Midlevel Provider: Corey Carlson Discharge Problem: Physical deconditioning, Alcohol dependence, Frequent falls Patient Disposition: Admitted As Inpatient Discharge Instructions Interventions: ED Discharge Assessment Last Done: 08/18/18 15:53 Discharge Problem: Alcohol dependence Qualifiers: Substance use status: uncomplicated Qualified Code(s): F10.20 - Alcohol dependence, uncomplicated The scribe's documentation has been prepared under my direction and personally reviewed by me in its entirety. I confirm that the note above accurately reflect s all work, treatment, procedures, and medical decision making performed by me.
[2018-08-18] MEDS ORDERED: CETIRIZINE HCL 10 MG TABLET PO PRN (16:41)
[2018-08-18] MEDS ORDERED: POLYETHYLENE (MIRALAX) 17 GM PACK PO PRN (16:41)
[2018-08-18] MEDS ORDERED: ONDANSETRON INJ 2 MG/ML 2 ML VIAL IV PRN (16:41)
[2018-08-18] MEDS ORDERED: ALBUTEROL HFA 8 GM INHALER INH PRN (16:41)
[2018-08-18] MEDS ORDERED: SODIUM CHLORIDE 0.9% 1000ML 1,000 ML IV SCH (16:41)
[2018-08-18] MEDS ORDERED: GABAPENTIN 1200MG ALCOHOL WITHDRAWAL LOAD PO STA (16:41)
[2018-08-18] MEDS ORDERED: ACETAMINOPHEN 325 MG TAB PO PRN (16:41)
[2018-08-18] MEDS ORDERED: LORazepam 1 MG TAB PO PRN (16:41)
[2018-08-18] MEDS ORDERED: ALUMINUM/MAGNESIUM SUSP 30 ML UDC PO PRN (16:41)
[2018-08-18] MEDS ORDERED: MAGNESIUM HYDROXIDE SUSP 30 ML UDC PO PRN (16:41)
[2018-08-18 16:45] LABS: Bilirubin Direct 0.8 mg/dl (0-0.2); C Reactive Protein 3.4 mg/dl (0-0.29)
[2018-08-18] MEDS ORDERED: THIAMINE HCL 100 MG TAB PO ONE (17:00)
[2018-08-18] MEDS ORDERED: GABAPENTIN 600 MG TAB PO SCH (17:00)
[2018-08-18] MEDS: cephALEXin 500 MG CAP PO SCH ×2 (17:46→20:29)
--- NOTE | 2018-08-18 17:46 | Magnetic Resonance Report ---
MR brain wo con CLINICAL HISTORY: 63 years-old Female presenting with freq fall, unable to ambulate. TECHNIQUE: Multisequence, multiplanar MR imaging of the brain was performed without the use of intrav enous contrast. IV contrast: None. COMPARISON: Noncontrast CT head performed earlier today. FINDINGS: Localizer images: Unremarkable. Normal midline sagittal structures. Proportional ventricular and sulcal prominence, likely age-relate d parenchymal volume loss. No restricted diffusion or hemorrhage. Basal ganglia calcifications likely senescent. Brain parenchyma otherwise normal in appearance with preserved gibson-white differentiation . No mass effect or midline shift. No extra-axial fluid collection. T2 skull base flow voids preserved. Bone marrow signal intensity within the calvarium within normal limits. IMPRESSION: 1. No acute intracranial abnormality. Electronically signed by: Michael Christine M.D. 08/18/2018 5:45 PM
[2018-08-18] MEDS: FLUTICASONE/SALMETEROL 250/50 (ADVAIR) 14 PUFF/1 INHALER INH SCH (20:28)
[2018-08-18] MEDS: SIMVASTATIN 20 MG TAB PO SCH (20:29)
[2018-08-18] MEDS: GABAPENTIN 600 MG TAB PO SCH (23:27)
[2018-08-19] MEDS: GABAPENTIN 600 MG TAB PO SCH ×3 (05:33→21:10)
[2018-08-19 06:32] LABS: Hematocrit (blood only) 29.2 % (37-47); Hemoglobin 9.7 g/dL (12.0-16.0); Mean Corpuscular Hgb Conc 33.2 g/dL (32-36); Mean Corpuscular Volume 106.2 fL (80-100); RDW Coefficient of Variation 13.5 % (11.5-14.5); RDW Standard Deviation 51.7 fL (36.4-46.3); Red Blood Count 2.75 M/uL (4.2-5.4); White Blood Count 4.46 K/uL (4.8-10.8)
[2018-08-19 06:59] LABS: Mean Platelet Volume 9.8 fL (7.4-10.4); Platelet Count 85 K/uL (130-400)
[2018-08-19 07:04] LABS: Basophils # (auto) 0.02 K/uL (0-0.2); Basophils % (auto) 0.4 %; Eosinophils # (auto) 0.22 K/uL (0-0.5); Eosinophils % (auto) 4.9 %; Immature Granulocytes # (auto) 0.03 K/uL (0.00-0.02); Immature Granulocytes % (auto) 0.7 %; Lymphocytes # (auto) 0.44 K/uL (1.2-3.4); Lymphocytes % (auto) 9.9 %; Monocytes # (auto) 0.39 K/uL (0.11-0.59); Monocytes % (auto) 8.7 %; Neutrophils # (auto) 3.36 K/uL (1.4-6.5); Neutrophils % (auto) 75.4 %
[2018-08-19 07:13] LABS: Albumin Level 2.3 gm/dl (3.4-5.0); BUN Creatinine Ratio 11.7 (10-20); Calcium 7.8 mg/dl (8.5-10.1); Creatinine Clr Calc Pharmacy 67.2 ml/min; Est GFR (African American) 107.4; Est GFR (Non-African American) 92.7; Potassium 3.1 mmol/L (3.5-5.1)
[2018-08-19 07:27] LABS: Albumin Globulin Ratio 0.6 (0.9-2); Bilirubin,Total 1.2 mg/dl (0.2-1); Globulin 3.6 gm/dl (2.5-4.0); Total Protein 5.9 gm/dl (6.4-8.2)
[2018-08-19] MEDS: FLUTICASONE/SALMETEROL 250/50 (ADVAIR) 14 PUFF/1 INHALER INH SCH ×2 (07:43→21:06)
[2018-08-19] MEDS: TRIAMTERENE/HCTZ 37.5/25MG TAB PO SCH (07:43)
[2018-08-19] MEDS: CALCIUM 600MG + VIT D 400 IU TAB PO SCH (07:43)
[2018-08-19] MEDS: CLOPIDOGREL BISULFATE 75 MG TAB PO SCH (07:43)
[2018-08-19] MEDS: VERAPAMIL HCL 180 MG TABCR PO SCH (07:43)
[2018-08-19] MEDS: CEROVITE ADV FORMULA TAB PO SCH (07:43)
[2018-08-19] MEDS: THIAMINE HCL 100 MG TAB PO SCH (07:43)
--- NOTE | 2018-08-19 07:43 | Ultrasound Report ---
ULTRASOUND RIGHT UPPER QUADRANT ABDOMEN CLINICAL HISTORY: Abnormal liver function studies. COMPARISON STUDY: Abdominal CT dated 12/05/2017. TECHNIQUE: Real-time, grayscale, and color flow sonography of the right upper quadrant of the abdomen was performed. Images are reviewed in the transverse and longitudinal planes. FINDINGS: Liver: The liver is top normal in size and demonstrates heterogeneously increased echotexture consist ent with hepatic steatosis. There is no intrahepatic biliary ductal dilatation. The main portal vein is patent. Gallbladder: The gallbladder is not distended. No shadowing gallstones are identified. The bladder wa ll is mildly thickened measuring up to 4 mm and there is trace pericholecystic fluid. A sonographic M urphy's sign is reportedly absent. The common bile duct measures up to 0.7 cm in diameter. Pancreas: Visualized portions of the pancreatic head and body are normal in appearance. The splenic v ein is patent. Right kidney: Survey images of the right kidney demonstrate normal size and echotexture. There is no hydronephrosis. A 1.3 cm cyst is noted in the interpolar region. Ascites: None. IMPRESSION: 1. Hepatic steatosis. 2. The gallbladder wall is mildly thickened and there is trace pericholecystic fluid. No shadowing ga llstones are identified and a sonographic Varela's sign is reportedly absent. These findings are of i ndeterminant significance, and although considered unlikely acute cholecystitis is not entirely exclu ded. If there is clinical concern for acute cholecystitis a nuclear hepatobiliary scan should be cons idered. Electronically signed by: Jose Cruz Blanco M.D. 08/19/2018 7:42 AM
[2018-08-19] MEDS: cephALEXin 500 MG CAP PO SCH ×4 (07:44→21:07)
[2018-08-19] MEDS ORDERED: POTASSIUM CHLORIDE 10 MEQ TABCR PO STA (08:29)
--- NOTE | 2018-08-19 15:25 | Hospitalist Progress Note ---
Date of Service August 19, 2018 Assessment & Plan (1) Ambulatory dysfunction: (2) Frequent falls: Patient is a 63 yr female with H/O HTN, asthma, pre-DM, history of splenic artery aneurysm status post coil closure with stent placement 05/17/2018, history of EtOH abuse, Elevated transaminitis, thrombocytopenia, diastolic dysfunction who presents with H/O ambulation dysfunction for 24 hours and frequent falls x1 month. Ambulatory Dysfunction Frequent falls In setting of chronic alcohol use MRI Brain:No acute intracranial abnormality. H/O significant shakiness at baseline Normal CK levels, B12 and TSH levels PT/OT Patient is being planned for outpatient PT arranged by her PCP as per Patient Currently she is not interested in inpatient Rehab placement Multiple bruises /ecchymosis /wounds from falls B/L Lower extremity wounds Continue keflex, wound care (3) Alcohol abuse: Transaminitis Chronic thrombocytopenia ABD usd: Says history of hepatic steatosis, mild thickened gallbladder wall and trace pericholecystic fluid. No gallstones, negative Varela sign. 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, folic acid Patient denies abdominal pain (4) HTN (hypertension): Blood pressure stable Continue triamterene, hydrochlorothiazide Also on verapamil Monitor (5) Macrocytic anemia: Normal folate, vitamin B12 levels Hemoglobin near baseline Monitor (6) Thrombocytopenia: Secondary to chronic alcoholism No signs of acute bleeding Monitor platelets Hypokalemia: Replace and monitor electrolytes (7) Transaminitis: (8) Asthma: No signs of exacerbation Continue Advair History of splenic aneurysm S/P coil closure Continue Plavix (9) DVT prophylaxis: SCDS RE: Thrombocytopenia CODE STATUS Full code Disposition: PT OT requested Patient currently not interested in inpatient rehab placement Likely discharge home with home health when stable Subjective Patient is seen and examined at bedside Patient states she is feeling a lot better today Denies any chest pain, shortness of breath, dizziness, abdominal pain, nausea Acute clinic at discharge Patient currently not interested in inpatient rehab even if qualifies States her last alcohol drink was 1 month ago Generalized weakness much improved Review of Systems Review of Systems: All systems reviewed & are unremarkable except as noted in HPI & below Physical Exam Physical Exam: Physical Exam: Vitals signs as noted above General Appearance:Moderately built and nourished, no apparent distress Head: normocephalic, Atraumatic Eyes: normal inspection, EOMI Neck: supple, Trachea midline Respiratory/Chest: Normal breath sounds, CTA Cardiovascular: S1, S2, No murmur Abdomen/GI:Soft, Non tender, Bowel sounds present Extremities/Musculoskelatal:normal inspection, no edema Neurologic/Psych:AAOX3, grossly no focal neurological deficits Skin: normal color, warm, +Multiple wounds on legs Results & Data Vital Signs (Past 12 Hours) Vital Signs Temp Pulse Resp BP Pulse Ox 08/19/18 15:04 37.3 C 111 H 18 102/71 96 08/19/18 11:41 37.2 C 73 18 105/70 98 08/19/18 07:17 37.1 C 86 16 112/68 97 08/19/18 04:38 36.5 C 77 16 122/70 95 Laboratory Results Short CBC 08/19/18 Range/Units 06:21 WBC 4.46 L (4.8-10.8) K/uL Hgb 9.7 L (12.0-16.0) g/dL Hct 29.2 L (37-47) % Plt Count 85 L (130-400) K/uL BMP 08/19/18 06:21 Sodium 137 Potassium 3.1 L Chloride 103 Carbon Dioxide 25 BUN 8 Creatinine 0.66 Glucose 111 H Calcium 7.8 L Cardiac Enzymes 08/18/18 Range/Units 18:01 Total Creatine Kinase 117 (26-192) U/L Liver Function 08/18/18 08/18/18 08/19/18 Range/Units 10:18 10:18 06:21 Total Bilirubin 1.2 H (0.2-1) mg/dl Direct Bilirubin Cancelled 0.8 H AST 71 H (15-37) U/L ALT 41 (12-78) U/L Alkaline Phosphatase 195 H (45-117) U/L Albumin 2.3 L (3.4-5.0) gm/dl
[2018-08-19] MEDS: SIMVASTATIN 20 MG TAB PO SCH (21:08)
[2018-08-20] MEDS: GABAPENTIN 600 MG TAB PO SCH (05:45)
[2018-08-20 06:47] LABS: Estimated Average Glucose 120 mg/dl; Hemoglobin A1C 5.8 % (4.5-5.6)
[2018-08-20 07:42] LABS: Hematocrit (blood only) 29.5 % (37-47); Hemoglobin 9.8 g/dL (12.0-16.0); Mean Corpuscular Hgb Conc 33.2 g/dL (32-36); Mean Corpuscular Volume 108.5 fL (80-100); RDW Coefficient of Variation 13.1 % (11.5-14.5); RDW Standard Deviation 51.9 fL (36.4-46.3); Red Blood Count 2.72 M/uL (4.2-5.4); White Blood Count 5.03 K/uL (4.8-10.8)
[2018-08-20 08:05] LABS: Platelet Count 89 K/uL (130-400); Platelet Estimate Decreased (Normal)
[2018-08-20] MEDS: CLOPIDOGREL BISULFATE 75 MG TAB PO SCH (08:15)
[2018-08-20] MEDS: FLUTICASONE/SALMETEROL 250/50 (ADVAIR) 14 PUFF/1 INHALER INH SCH (08:15)
[2018-08-20] MEDS: CEROVITE ADV FORMULA TAB PO SCH (08:15)
[2018-08-20] MEDS: VERAPAMIL HCL 180 MG TABCR PO SCH (08:16)
[2018-08-20] MEDS: TRIAMTERENE/HCTZ 37.5/25MG TAB PO SCH (08:16)
[2018-08-20] MEDS: CALCIUM 600MG + VIT D 400 IU TAB PO SCH (08:16)
[2018-08-20] MEDS: cephALEXin 500 MG CAP PO SCH ×2 (08:17→12:18)
[2018-08-20] MEDS: THIAMINE HCL 100 MG TAB PO SCH (08:17)
[2018-08-20 08:18] LABS: Calcium 8.5 mg/dl (8.5-10.1); Creatinine Clr Calc Pharmacy 57.6 ml/min; Est GFR (African American) 93.9; Magnesium 1.9 mg/dl (1.8-2.4); Potassium 3.2 mmol/L (3.5-5.1)
[2018-08-20] MEDS ORDERED: POTASSIUM CHLORIDE 20 MEQ TABCR PO SCH (09:15)
--- NOTE | 2018-08-20 11:42 | Hospitalist Progress Note ---
Date of Service August 20, 2018 Assessment & Plan (1) Ambulatory dysfunction: (2) Frequent falls: Patient is a 63 yr female with H/O HTN, asthma, pre-DM, history of splenic artery aneurysm status post coil closure with stent placement 05/17/2018, history of EtOH abuse, Elevated transaminitis, thrombocytopenia, diastolic dysfunction who presents with H/O ambulation dysfunction for 24 hours and frequent falls x1 month. Ambulatory Dysfunction Frequent falls In setting of chronic alcohol use MRI Brain:No acute intracranial abnormality. H/O significant shakiness at baseline Normal CK levels, B12 and TSH levels PT/OT: Recommend to return Home Patient is being planned for outpatient PT arranged by her PCP as per Patient Multiple bruises /ecchymosis /wounds from falls B/L Lower extremity wounds Continue keflex, wound care (3) Alcohol abuse: Transaminitis Chronic thrombocytopenia ABD usd: Says history of hepatic steatosis, mild thickened gallbladder wall and trace pericholecystic fluid. No gallstones, negative Varela sign. 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 Patient denies abdominal pain, nausea, vomiting (4) HTN (hypertension): Blood pressure stable Continue triamterene, hydrochlorothiazide Also on verapamil Monitor (5) Macrocytic anemia: Normal folate, vitamin B12 levels Hemoglobin near baseline Monitor (6) Thrombocytopenia: Secondary to chronic alcoholism No signs of acute bleeding Monitor platelets Hypokalemia: Replace and monitor electrolytes (7) Transaminitis: (8) Asthma: No signs of exacerbation Continue Advair History of splenic aneurysm S/P coil closure Continue Plavix (9) DVT prophylaxis: SCDS RE: Thrombocytopenia CODE STATUS Full code Disposition: Plan to discharge home today Subjective Patient is seen and examined at bedside Eager to get discharged Feels lot better today Did well with PT Tremor improved Denies any chest pain, shortness of breath, dizziness, abdominal pain, nausea Generalized weakness improved Family at bedside No other complaints Review of Systems Review of Systems: All systems reviewed & are unremarkable except as noted in HPI & below Physical Exam Physical Exam: Physical Exam: Vitals signs as noted above General Appearance:Moderately built and nourished, no apparent distress Head: normocephalic, Atraumatic Eyes: normal inspection, EOMI Neck: supple, Trachea midline Respiratory/Chest: Normal breath sounds, CTA Cardiovascular: S1, S2, No murmur Abdomen/GI:Soft, Non tender, Bowel sounds present Extremities/Musculoskelatal:normal inspection, no edema Neurologic/Psych:AAOX3, grossly no focal neurological deficits Skin: normal color, warm, +Multiple wounds on legs Results & Data Vital Signs (Past 12 Hours) Vital Signs Temp Pulse Pulse Resp BP Pulse Ox 08/20/18 07:42 36.8 C 66 18 121/82 99 08/20/18 04:37 36.7 C 71 20 105/70 98 08/20/18 00:00 91 H Laboratory Results Short CBC 08/20/18 Range/Units 07:11 WBC 5.03 (4.8-10.8) K/uL Hgb 9.8 L (12.0-16.0) g/dL Hct 29.5 L (37-47) % Plt Count 89 L (130-400) K/uL BMP 08/20/18 07:11 Sodium 138 Potassium 3.2 L Chloride 106 Carbon Dioxide 26 BUN 9 Creatinine 0.77 Glucose 195 H Calcium 8.5
--- NOTE | 2018-08-20 11:55 | Discharge Summary ---
Date of Service August 20, 2018 Admission HPI Per Admitting Provider This is a 63-year-old female who has a significant past medical history of HTN, asthma, pre-DM, history of splenic artery aneurysm status post coil closure with stent placement 05/17/2018, history of EtOH abuse, Elevated transaminitis, thrombocytopenia, diastolic dysfunction who presents to [facility] ED secondary to difficulty with ambulation x24 hours and frequent falls x1 month. [place] and was having significant difficulty walking yesterday. She was unable to get up from the bed and even walk to the bathroom without significant assistance from her . Her symptoms are still present this morning therefore they opted to present to the ED. Currently is not at bedside. According to patient she has been having off-and-on difficulty with walking and frequent falls for the past month describing it as, "sporadic." For the past month she has been using a cane for assist device. She has 3 known falls in July. Also complains of significantly increased bruising since being started on Plavix in May as well as numerous lesions to her lower legs from the falls. She denies any recent illness, fever, chills, sweats, lightheadedness, dizziness, syncope, chest pain, shortness of breath, RINCON, palpitations, nausea, vomiting, hemoptysis, hematemesis, abdominal pain, diarrhea. Her last bowel movement was yesterday and she denies any melena, hematochezia. She has been urinating without difficulty. Denies any dysuria, hematuria, increased urgency or frequency with urination. Overall her appetite has been decreased for the past 24 hours. She feels her symptoms are secondary to her not eating and states her appetite has returned and is requesting food. She denies any illicit alcohol or drug use. She says her last drink was one glass of wine approximately 1 month ago. She elicits that she was hospitalized November 2017 with pancreatitis and at that time opted to cut down on her drinking. A proximally 1 year ago she states she was drinking 1 to 2 glasses of wine daily. According to report from Dr. Carlson, encountered provider outside of room and feels that patient is not being truthful with her drinking. It is reported that he feels that she has been sneaking or closet drinking. In ED patient's lab studies were significant for macrocytic anemia H&H 11.3 and 33.5, WBC 6.86, platelet 109, sodium 133, potassium 3.5, BUN 12, creatinine 0.95, T bili 1.7, AST 81, alk phos 258, lipase 45, TSH WNL, urinalysis with trace leukocyte esterase, WBC, epithelial cells, EtOH negative. Head CT and chest x-ray were performed and revealed no acute abnormality. Admission Exam Per Admitting Provider Gen: Petite, thin, female, sitting up in bed, NAD, flat affect, answers questions appropriately Head: Normocephalic, Atraumatic Eyes: Sclera normal, no conjunctival injection, PERRLA, EOMI ENT: Gross hearing intact, normal pharynx, mucous membranes moist Neck: supple, no adenopathy, No JVD, no bruit, Resp: Clear to auscultation b/l, no wheeze, rales, rhonchi. 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 Extremities: No edema bilaterally Skin: warm, moist, no rash, negative turgor, cap refill < 2sec, bilateral distal lower extremity numerous skin tears along lateral gastrocnemius and tibial surface in various stages of healing, surrounding erythema, no warmth Neuro: Alert and oriented x 3, speech normal, flat mood/affect, cran nerve 2-12 intact grossly : deferred Principal Diagnosis Discharge Information Discharge Diagnosis Ambulatory Dysfunction Alcohol use disorder Hypokalemia Discharge Goals Decrease discomfort,Improve disease control, Improve function Discharge Activity Limitations Resume your previous activity Discharge Data Allergies Allergy/AdvReac Type Severity Reaction Status Date / Time No Known Allergies Allergy Unverified 08/18/18 10:38 Consultations 08/18/18 14:21 ED Decision to Admit Stat 08/18/18 16:41 Consult Case Management - Discharge Planning Routine Procedures Performed Brain MRI: No acute intracranial abnormality. CXR: No acute cardiopulmonary disease. ABD USD: 1. Hepatic steatosis. 2. The gallbladder wall is mildly thickened and there is trace pericholecystic fluid. No shadowing gallstones are identified and a sonographic Varela's sign is reportedly absent. These findings are of indeterminant significance, and although considered unlikely acute cholecystitis is not entirely excluded. If there is clinical concern for acute cholecystitis a nuclear hepatobiliary scan should be considered. Ordered Studies 08/18/18 11:46 CT head/brain wo con Stat 08/18/18 15:10 MR brain wo con Routine 08/18/18 16:41 US abdomen limited Routine Hospital Course (1) Ambulatory dysfunction: (2) Frequent falls: Patient is a 63 yr female with H/O HTN, asthma, pre-DM, history of splenic artery aneurysm status post coil closure with stent placement 05/17/2018, history of EtOH abuse, Elevated transaminitis, thrombocytopenia, diastolic dysfunction who presents with H/O ambulation dysfunction for 24 hours and frequent falls x1 month. Ambulatory Dysfunction Frequent falls In setting of chronic alcohol use MRI Brain:No acute intracranial abnormality. H/O significant shakiness at baseline Normal CK levels, B12 and TSH levels PT/OT: Recommend to return Home Patient is being planned for outpatient PT arranged by her PCP as per Patient Multiple bruises /ecchymosis /wounds from falls B/L Lower extremity wounds Continue keflex, wound care (3) Alcohol abuse: Transaminitis Chronic thrombocytopenia ABD usd: Says history of hepatic steatosis, mild thickened gallbladder wall and trace pericholecystic fluid. No gallstones, negative Varela sign. 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 Patient denies abdominal pain, nausea, vomiting H/O Diabetes Mellitus Diet Controlled Previously on Metformin-- discontinued due to diarrhea A1C: 5.8 Prefers not to be started on any meds and would like to discuss with her PCP Counseled on diet (4) HTN (hypertension): Blood pressure stable Continue triamterene, hydrochlorothiazide Also on verapamil Monitor (5) Macrocytic anemia: Normal folate, vitamin B12 levels Hemoglobin near baseline Monitor (6) Thrombocytopenia: Secondary to chronic alcoholism No signs of acute bleeding Monitor platelets Hypokalemia: Replace and monitor electrolytes (7) Transaminitis: (8) Asthma: No signs of exacerbation Continue Advair History of splenic aneurysm S/P coil closure Continue Plavix (9) DVT prophylaxis: SCDS RE: Thrombocytopenia CODE STATUS Full code Disposition: Plan to discharge home today Total Time Total Time Spent Total Time Spent (In Minutes): 40 minutes Total Time Includes: Examination of the Patient, Discharge Planning, Medication Reconciliation and Other Discharge Plan Discharge Items Patient Disposition: Home - Self-Care Reason For Visit: ambulatory dysfunction weakness Discharge Diagnosis: Ambulatory Dysfunction Alcohol use disorder Hypokalemia Discharge Goals: Decrease discomfort, Improve disease control and Improve function Activity: Resume your previous activity Exercise/Sports: Gradually increase as tolerated Non-emergency contact: Primary Care Provider Call non-emergency contact if: you have any medication questions, your symptoms worsen, your pain is not controlled, your pain is worsening, your pain is unusual for you, your pain is concerning for you and you have a fever Follow-up/Referrals: Comfort Mendoza DO [Primary Care Provider] - Diet: Carb Consistent or DM2 and Heart Healthy Addtl Provider Instructions: Follow up with your PCP on August 24, 2018 at 1:30pm Complete the antibiotic course as prescribed Quit drinking alcohol as advised Complete the gabapentin course as prescribed Discuss with your Physician regarding your elevated blood sugar levels as advised Your Urine culture result is pending. Follow up with your doctor for results Seek immediate medical attention if your symptoms reoccur or worsen Prescriptions: New gabapentin 600 mg Tablet 600 mg PO Q24H 5 Days Qty: 5 RF: 0 thiamine HCl (vitamin B1) [Vitamin B-1] 100 mg Tablet 100 mg PO QAM 30 Days Qty: 30 RF: 0 cephalexin 500 mg Capsule 500 mg PO QID 3 Days Qty: 12 RF: 0 folic acid 1 mg tablet 1 mg PO DAILY Qty: 30 RF: 0 potassium chloride 20 mEq tablet extended release 20 meq PO DAILY Qty: 5 RF: 0 Continued fluticasone propion-salmeterol [Advair Diskus] 250-50 mcg/dose Blister With Device 1 inh INHALATION BID RF: 0 cetirizine [Zyrtec] 10 mg Tablet 10 mg PO DAILY PRN (Reason: Allergy Symptoms) RF: 0 triamterene-hydrochlorothiazid [Maxzide] 75-50 mg Tablet 1 tab PO DAILY RF: 0 Centrum Silver Women 8 mg iron-400 mcg-300 mcg Tablet 1 tab PO QAM RF: 0 clopidogrel 75 mg tablet 75 mg PO QAM RF: 0 simvastatin 20 mg tablet 20 mg PO HS RF: 0 albuterol sulfate 90 mcg/actuation Hfa Aerosol Inhaler 1 puff INHALATION DIRECTED PRN (Reason: Wheezing) RF: 0 calcium carbonate-vitamin D3 [Calcium 600 + D(3)] 600 mg(1,500mg) -400 unit Tablet 1 tab PO DAILY RF: 0 verapamil 360 mg capsule,ext rel. pellets 24 hr 360 mg PO DAILY RF: 0 Stand-Alone Forms: [facility] Discharge Orders: Discharge Order (Routine); Ordered 08/20/18 Ordered By: Peña Keys Admission Data Admit Date/Time: 08/18/18 14:35 Attending Provider: Peña Keys Admit Provider: Mercedes Sexton Primary Care Provider: Comfort Mendoza Other Providers: Mercedes Sexton Service: Telemetry Medical Other Interventions: Discharge Summary Assessment (RN) Last Done: 08/20/18 11:56 Pending Studies at Discharge: Yes Studies:: Urine Culture DC Date/Time DO NOT enter until pt leaves facility: 08/20/18 14:00
[2018-08-20] MEDS ORDERED: NURSING DECISION MEDICATION ONE (12:33)
[2018-08-20] MEDS ORDERED: INSULIN ASPART PER UNIT SC ONE ×2 (13:00)
[2018-08-20] MEDS ORDERED: GABAPENTIN 600 MG TAB PO SCH (18:00)
[2018-08-22] MEDS ORDERED: GABAPENTIN 600 MG TAB PO SCH (06:00)
== END 2018-08-20 14:00 | disposition home or self-care (01) ==
LOC: ED 09:37 → 2W 09:37 → SUATTDRO 14:35 → 2W 15:53

== ENCOUNTER 2019-03-26 11:06 | Inpatient (IN) ==
[2019-03-26] MEDS ORDERED: LORazepam 1 MG/2 ML VIAL IV STA ×2 (12:05→14:57)
[2019-03-26] MEDS ORDERED: DiphenhydrAMINE HCL 50 MG/ML VIAL IV STA (12:05)
[2019-03-26] MEDS ORDERED: MULTI-VITAMIN INFUSION 10 ML, THIAMINE HCL 100 MG, FOLIC ACID 1 MG in SODIUM CHLORIDE 0... IV ONE (12:05)
[2019-03-26] MEDS ORDERED: PROCHLORPERAZINE 1 ML IV ONE (12:05)
[2019-03-26] MEDS ORDERED: FAMOTIDINE 20MG IV PUSH 20 MG/5 ML SYR IV STA (12:09)
[2019-03-26] MEDS ORDERED: SODIUM CHLORIDE 0.9% 1000ML 1,000 ML IV SCH ×2 (12:15→15:00)
--- NOTE | 2019-03-26 12:41 | XRay Report ---
XR chest 1V portable CLINICAL HISTORY: Chest Pain pain COMPARISON STUDY: 08/18/2018 FINDINGS: The bones soft tissues and hemidiaphragms are normal. The cardiomediastinal silhouette is n ormal. The lungs are clear. The pulmonary vasculature is normal. IMPRESSION: Negative chest. ACT 112: Negative or not required by law. The above report was generated using voice recognition software. It may contain grammatical, syntax or spelling errors. Electronically signed by: Danny Murphy M.D. 03/26/2019 12:40 PM
[2019-03-26 12:56] LABS: INR 1.1 (0.9-1.1); Partial Thromboplastin Ratio 0.9; Partial Thromboplastin Time 24.8 Seconds (21.0-31.0); Prothrombin Time 10.9 Seconds (9.0-12.0)
[2019-03-26 13:04] LABS: Basophils # (auto) 0.01 K/uL (0-0.2); Basophils % (auto) 0.3 %; Eosinophils # (auto) 0.02 K/uL (0-0.5); Eosinophils % (auto) 0.5 %; Hematocrit (blood only) 38.2 % (37-47); Hemoglobin 12.9 g/dL (12.0-16.0); Immature Granulocytes # (auto) 0.03 K/uL (0.00-0.02); Immature Granulocytes % (auto) 0.8 %; Lymphocytes # (auto) 0.29 K/uL (1.2-3.4); Lymphocytes % (auto) 7.7 %; Mean Corpuscular Hemoglobin 33.5 pg (25-34); Mean Corpuscular Hgb Conc 33.8 g/dL (32-36); Mean Corpuscular Volume 99.2 fL (80-100); Mean Platelet Volume 9.6 fL (7.4-10.4); Neutrophils % (auto) 74.7 %; Platelet Count 30 K/uL (130-400); Platelet Estimate SIGNIFIC DECREASED (Normal); RDW Coefficient of Variation 14.2 % (11.5-14.5); RDW Standard Deviation 51.2 fL (36.4-46.3); Red Blood Count 3.85 M/uL (4.2-5.4); White Blood Count 3.75 K/uL (4.8-10.8)
[2019-03-26 13:07] LABS: Alanine Aminotransferase 80 U/L (12-78); Albumin Level 3.1 gm/dl (3.4-5.0); Aspartate Aminotransferase 180 U/L (15-37); BUN Creatinine Ratio 12.2 (10-20); Bilirubin Direct 0.6 mg/dl (0-0.2); Blood Urea Nitrogen 11 mg/dl (7-18); Carbon Dioxide 23 mmol/L (21-32); Chloride 94 mmol/L (98-107); Est GFR (African American) 79.9; Est GFR (Non-African American) 68.9; Glucose 153 mg/dl (70-99); Lipase 387 U/L (73-393); Magnesium 1.6 mg/dl (1.8-2.4); Potassium 3.3 mmol/L (3.5-5.1); Sodium 134 mmol/L (136-145)
[2019-03-26 13:16] LABS: Albumin Globulin Ratio 0.8 (0.9-2); Alkaline Phosphatase 144 U/L (45-117); Bilirubin,Total 1.1 mg/dl (0.2-1); Phosphorus 3.8 mg/dl (2.5-4.9); Total Protein 7.1 gm/dl (6.4-8.2); Troponin I < 0.015 ng/ml (0-0.045)
--- NOTE | 2019-03-26 16:07 | History & Physical Report ---
Date of Service March 26, 2019 Assessment & Plan (1) Alcohol withdrawal: This is a 63-year-old female who has a significant past medical history of HTN, asthma, pre-DM, history of splenic artery aneurysm status post coil closure with stent placement 05/17/2018, history of EtOH abuse, Elevated transaminitis, thrombocytopenia, diastolic dysfunction who presents to [facility] ED secondary to nausea, vomiting, feeling unwell and tremors x1 to 2 days. Pt with active ETOH withdrawal, ETOH level 47 admit to PCU AWSS protocol with gabapentin taper and lorazpam received Banana bag in ED give thiamine, folic acid, MVI daily will need PT/OT eval when acute withdrawal phase over continue IVF +KCL 125cc/hr repeat CBC, CMP (2) Ambulatory dysfunction: In setting of chronic alcohol abuse and alcohol withdrawal Replace thiamine and folic acid Will need PT OT eval (3) Transaminitis: AST 180, ALT 80, ALP 144, Tbli 1.1 consistent with ETOH abuse follow CMP had RUQ US 08/2018 revealing hepatic steatosis (4) Thrombocytopenia: History of chronic thrombocytopenia in the setting of alcohol abuse Platelet count 30 today Hold Plavix Monitor CBC Discussed with patient's vascular surgeon CLARISSA who agrees also (5) Hypomagnesemia: mag 1.6 replace with mag sulfate 1g x 2 repeat in a.m. (6) Hypokalemia: replace with K rider 10meq x 2 along with KCL in IVF repeat bmp at 9pm and a.m. (7) Splenic artery aneurysm: S/P coil closure on 05/17/2018 follows [facility] vascular last see on 02/20/[address] 30 today discussed with CLARISSA Geronimo who discussed with Dr. Camara, recommends holding plavix for now until platelets recover recommend follow up with vascular as outpt (8) HTN (hypertension): BP elevated on admission due to ETOH withdrawal Continue verapamil Hold Maxide given electrolyte abnormalities and volume depletion (9) DVT prophylaxis: None secondary to thrombocytopenia, easy bruisability Disposition: admit to PCU Follow-up: PCP Dr. Mendoza upon discharge, along with appropriate vascular follow-up and ETOH cessation counseling or rehab Pt was seen and examined in collaboration with Dr. Castillo, please see addendum History of Present Illness Chief Complaint: Tremors x 1 day. Primary Care Provider: Comfort Mendoza DO This is a 63-year-old female who has a significant past medical history of HTN, asthma, pre-DM, history of splenic artery aneurysm status post coil closure with stent placement 05/17/2018, history of EtOH abuse, Elevated transaminitis, thrombocytopenia, diastolic dysfunction who presents to [facility] ED secondary to nausea, vomiting, feeling unwell and tremors x1 to 2 days. She elicits over the past 2 days she has had significant poor appetite, nausea, emesis, not feeling well, bilateral upper extremity tremors and difficulty with walking. She denies falling. Her last episode of emesis was prior to ED which was red liquid in nature secondary to drinking cranberry juice. Denies any marco hematemesis or hemoptysis. She does have left a bloodshot eye. "I bruise everywhere secondary to being on Plavix." She admits to not being compliant with Plavix every day because of the bruising and frequent nosebleeds. She denies any other recent illness, fever, chills, sweats, lightheadedness, dizziness, syncope, chest pain, shortness of breath, palpitations, abdominal pain, dysuria, increased urgency or frequency with urination, hematuria, melena, hematochezia. Her last BM was today. She has a past history of alcohol abuse. She states that she has been drinking half a glass of wine nightly, last drink last evening. In ED patient was tachycardic but otherwise hemodynamically stable. Her ethyl alcohol level on arrival was 47, platelet count 30, sodium 134, K3.3, chloride 94, gap 17, BUN 11, creatinine 0.88, glucose 153, mag 1.6, AST 180, ALT 80, alk phos 144, total bili 1.1, lipase WNL, TSH WNL, troponin WNL. Her EKG revealed sinus tachycardia at 103 bpm, T wave inversion noted in lead III. Chest x-ray noted no acute cardiopulmonary abnormality. In ED she received IV banana bag, additional 1 L of IVF, 1 mg of Ativan, 12.5 mg IV Benadryl, IV Compazine, 20 mg IV push Pepcid. Allergies Allergy/AdvReac Type Severity Reaction Status Date / Time No Known Allergies Allergy Unverified 03/26/19 11:55 Home Medications Home Medications Medication Instructions Recorded Confirmed Type Centrum Silver Women 1 tab PO QAM 12/05/17 03/26/19 History cetirizine [Zyrtec] 10 mg PO DAILY PRN 12/05/17 03/26/19 History fluticasone propion-salmeterol 1 inh INHALATION BID 12/05/17 03/26/19 History [Advair Diskus] triamterene-hydrochlorothiazid 1 tab PO DAILY 12/05/17 03/26/19 History [Maxzide] albuterol sulfate 1 puff INHALATION DIRECTED PRN 05/25/18 03/26/19 History calcium carbonate-vitamin D3 1 tab PO DAILY 05/25/18 03/26/19 History [Calcium 600 + D(3)] clopidogrel 75 mg PO QAM 05/25/18 03/26/19 History simvastatin 20 mg PO HS 05/25/18 03/26/19 History verapamil 360 mg PO DAILY 08/18/18 03/26/19 History Past Med/Surg History Medical History (Updated 03/26/19 @ 16:36 by Anna Chambers PA-C) Alcohol dependence (Chronic) Asthma (Chronic) Diastolic dysfunction (Chronic) Frequent falls (Chronic) HTN (hypertension) (Chronic) Macrocytic anemia (Chronic) Osteoarthritis (Chronic) Pre-diabetes (Chronic) Thrombocytopenia (Chronic) Transaminitis (Chronic) Surgical History (Updated 03/26/19 @ 16:14 by Anna Chambers PA-C) H/O angioplasty S/P left brachial artery exposure via cut-down, balloon angioplasty celiac trunk origin stenosis with 5 x 40 [place] followed by 6 x 20 mm [place] angioplasty balloon, stent-assisted coil embolization of a 2.3 cm splenic artery aneurysm with 5 x 40 mm Innova stent on 05/17/[address] Pedroza. History of breast biopsy (Chronic) History of tubal ligation (Chronic) Previous section (Resolved) Family History Father , age 49 Coronary heart disease, Onset Age: 49 Mother Glaucoma Other Heart disease Social History (Updated 03/26/19 @ 16:14 by Anna Chambers PA-C) Preferred Language: Korean Communication Ability: Effective Sales Order Specialist Required: No Beliefs That Will Affect Care: Pentecostalism Pentecostalism Beliefs: Yazdanism marital status: Current Living Situation: Spouse Feels Safe at Home: Yes Smoking Status: Never smoker Hx Alcohol Use: Yes (denies using any etoh, reports having quit) Alcohol type: wine Alcohol Intake Frequency Comment: states only drinking 1/2 glass wine nightly Hx Substance Use: No Review of Systems Review of Systems: All systems reviewed & are unremarkable except as noted in HPI & below Physical Exam Physical Exam: Constitutional: Thin, acutely ill female, vitals as above, NAD, sitting up in bed, answers questions appropriately, tremulous Head: Normocephalic, Atraumatic Eyes: PERRL, right conjunctivae normal, left subconjunctival hemorrhage with associated inferior periorbital ecchymosis, anicteric sclerae ENMT: external ear and nose normal, oropharynx normal with dry mucous membranes Neck: trachea midline, no thyromegaly normal visual inspection Respiratory: normal respiratory effort, lungs clear to auscultation, no wheeze, rales, rhonchi. Normal insp/exp effort, no accessory muscle use Cardiovascular: Tachycardic rate, regular rhythm, 2/6 ZULEMA noted throughout precordium, no edema Vessels: no JVD or carotid bruit Chest: normal inspection of chest Abdomen: distended abd, normal bowel sounds, soft, nontender, no hepatosplenomegaly appreciated Musculoskeletal: no cyanosis or clubbing, extremities motor strength 5/5 Skin: no rashes, bilateral upper and lower extremity ecchymosis noted, very stages of healing, warm and dry moderate turgor Neurologic: no face palsy, no dysarthria CN's II-XI intact bilaterally and moves all extremities Psychiatric: A+Ox3, euthymic affect Lymphatic: no cervical or axillary lymphadenopathy : deferred Results & Data Vital Signs (Past 12 Hours) Vital Signs Temp Pulse Resp BP Pulse Ox 03/26/19 14:00 104 H 31 H 145/90 H 98 03/26/19 13:30 95 H 17 146/88 H 95 03/26/19 13:24 99 H 21 137/82 97 03/26/19 11:11 36.9 C 120 H 20 117/75 98 Laboratory Results Short CBC 03/26/19 Range/Units 12:22 WBC 3.75 L (4.8-10.8) K/uL Hgb 12.9 (12.0-16.0) g/dL Hct 38.2 (37-47) % Plt Count 30 L (130-400) K/uL BMP 03/26/19 12:22 Sodium 134 L Potassium 3.3 L Chloride 94 L Carbon Dioxide 23 BUN 11 Creatinine 0.88 Glucose 153 H Calcium 9.0 Cardiac Enzymes 03/26/19 Range/Units 12:22 Troponin I < 0.015 (0-0.045) ng/ml Liver Function 03/26/19 Range/Units 12:22 Total Bilirubin 1.1 H (0.2-1) mg/dl Direct Bilirubin 0.6 H (0-0.2) mg/dl AST 180 H (15-37) U/L ALT 80 H (12-78) U/L Alkaline Phosphatase 144 H (45-117) U/L Albumin 3.1 L (3.4-5.0) gm/dl Diagnostic Findings CXR: IMPRESSION: Negative chest. Medications Administered Discontinued Medications Diphenhydramine HCl (Benadryl) 12.5 mg IV NOW STA Stop: 03/26/19 12:06 Last Admin: 03/26/19 13:15 Dose: 12.5 mg Documented by: [id number] Sodium Chloride (Nss 1000ml) 1,000 mls @ 999 mls/hr IV .Q1H1M KRISTINA Stop: 03/26/19 13:15 Last Infusion: 03/26/19 14:12 Dose: 0 mls/hr Documented by: [id number] Admin: 03/26/19 13:10 Dose: 999 mls/hr Documented by: [id number] Prochlorperazine (Compazine) 1 mls @ 1 mls/min IV ONE ONE Stop: 03/26/19 12:06 Last Admin: 03/26/19 13:20 Dose: 1 mls/min Documented by: [id number] Lorazepam (Ativan) 1 mg in 2 mls @ 2 mls/min IV NOW STA Stop: 03/26/19 12:06 Last Admin: 03/26/19 13:15 Dose: 2 mls/min Documented by: [id number] Multivitamins 10 ml/ Thiamine HCl 100 mg/ Folic Acid 1 mg/Sodium Chloride 1,011.2 mls @ 1,011.2 mls/hr IV .Q1H ONE Stop: 03/26/19 13:04 Last Infusion: 03/26/19 14:11 Dose: 0 mls/hr Documented by: [id number] Admin: 03/26/19 13:10 Dose: 1,011.2 mls/hr Documented by: [id number] Famotidine (Pepcid 20mg Iv Push) 20 mg in 5 mls @ 2.5 mls/min IV NOW STA Stop: 03/26/19 12:10 Last Admin: 03/26/19 13:25 Dose: 2.5 mls/min Documented by: [id number] ECG Rate (beats per minute): 103 Rhythm: sinus tachycardia Findings: + T-wave inversion (lead III) Code Status & VTE Plan Code Status Full Code VTE Prophylaxis Plan VTE Prophylaxis will be ordered: No Supervising Physician Co-Signing Physician Notes Attending addendum The patient was seen and examined in emergency room She was brought into the emergency room with ambulatory dysfunction increasing shakes involving the upper extremities and nausea vomiting She still complains to have tremor but denies any other significant symptoms during examination Recently she has cut down his use of alcohol and has been drinking about half a glass of wine daily On examination Lying in bed with anxiety and tremors especially when doing anything Hemodynamically stable with tachycardia at a rate of 108/min Chest-clear to auscultate bilaterally Heart-S1-S2, regular with a 2/6 systolic murmur over precordium Abdomen-soft, non-, clinically no ascites, multiple Extremities-negative for any edema FLEECER-alert, awake and oriented x3, generally weak Admission labs, imaging studies and EKG reviewed Has alcoholism with withdrawal Ambulatory dysfunction likely secondary to complication from use of alcohol Generalized bruising with low platelet and has been on Plavix Will be admitted to telemetry unit with gabapentin protocol. Will hold Plavix for now Agree with assessment and plan as outlined above by Valencia Castillo (1) Alcohol withdrawal Complication of substance-induced condition: with unspecified complication Qualified Code(s): F10.239 - Alcohol dependence with withdrawal, unspecified
[2019-03-26] MEDS: POTASSIUM CHLORIDE / WTR 10 MEQ/100 ML PLCT IV SCH ×2 (16:19→19:25)
[2019-03-26] MEDS: MAGNESIUM SULFATE / D5W 1 GM/100 ML BAG IV SCH ×2 (16:19→19:25)
--- NOTE | 2019-03-26 16:34 | Emergency Department Note ---
Entered by Nataly Ordaz acting as a scribe for Aristeo Rapp MD History of Present Illness General Chief complaint: Vomiting Stated complaint: LIVER/PANCREAS ISSUSES,WONT EAT,SHAKEY,VOMTING Time Seen by Provider: 03/26/19 11:44 Source: patient History of Present Illness Onset (ago): day(s) 1 Location: abdomen (Vomiting) Severity: similar to prior episodes Pain Consistency: + other (persistent) Maximum Pain Intensity: 0 Quality: + other (vomiting) Associated symptoms: + cough, + nausea/vomiting, + weakness and + other (shaky); no fever/chills Treatments prior to arrival: none The patient is a 63 year old male presenting to the Emergency Department complaining of persistent vomiting starting 1 day ago. The patient reports that she has been nauseous and began vomiting today. She states that her emesis is red colored but that this is from drinking cranberry juice. She explains that she is shaky and weak for the past 3 days. She notes that because of her shakiness and weakness she is having a hard time ambulating. She adds that she has a chronic cough. The patient reports that her left eye is red and blood shot and that this happened this morning before she began to vomit. She explains that she has experienced these symptoms before and at that time was diagnosed with pancreatitis. She states that she has experienced pancreatitis a few times and that it is thought to be from past alcohol use. She explains that she has not drank alcohol for months. 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 She adds that she regularly takes Plavix. The patient denies recent fevers and chills. Home Medications Home Medications Medication Instructions Recorded Confirmed Type Centrum Silver Women 1 tab PO QAM 12/05/17 03/26/19 History cetirizine [Zyrtec] 10 mg PO DAILY PRN 12/05/17 03/26/19 History fluticasone propion-salmeterol 1 inh INHALATION BID 12/05/17 03/26/19 History [Advair Diskus] triamterene-hydrochlorothiazid 1 tab PO DAILY 12/05/17 03/26/19 History [Maxzide] albuterol sulfate 1 puff INHALATION DIRECTED PRN 05/25/18 03/26/19 History calcium carbonate-vitamin D3 1 tab PO DAILY 05/25/18 03/26/19 History [Calcium 600 + D(3)] clopidogrel 75 mg PO QAM 05/25/18 03/26/19 History simvastatin 20 mg PO HS 05/25/18 03/26/19 History verapamil 360 mg PO DAILY 08/18/18 03/26/19 History Allergies Allergy/AdvReac Type Severity Reaction Status Date / Time No Known Allergies Allergy Unverified 03/26/19 11:55 Past Med/Surg History Medical History Alcohol dependence (Chronic) Asthma (Chronic) Diastolic dysfunction (Chronic) Frequent falls (Chronic) HTN (hypertension) (Chronic) Macrocytic anemia (Chronic) Osteoarthritis (Chronic) Pre-diabetes (Chronic) Thrombocytopenia (Chronic) Transaminitis (Chronic) Surgical History (Updated 03/26/19 @ 16:14 by Anna Chambers PA-C) H/O angioplasty S/P left brachial artery exposure via cut-down, balloon angioplasty celiac trunk origin stenosis with 5 x 40 [place] followed by 6 x 20 mm [place] angioplasty balloon, stent-assisted coil embolization of a 2.3 cm splenic artery aneurysm with 5 x 40 mm Innova stent on 05/17/[address] Pedroza. 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 and A total of 10 systems reviewed and were otherwise negative Physical Exam Vital Signs Vital Signs - 24 hr 03/26/19 11:11 03/26/19 12:04 03/26/19 13:24 Temperature 36.9 C Temperature Source Oral Pulse Rate 120 H 99 H Pulse Rate from SpO2 Sensor 99 H Respiratory Rate 20 21 Respiratory Effort / Characteristics Non-Labored Respiratory Depth Normal Blood Pressure 117/75 137/82 Blood Pressure Mean 89 102 Pulse Oximetry 98 97 Oxygen Delivery Method Room Air Room Air Sepsis Recent Fever Within 48 Hours No Sepsis New/Unexplained Change in Mental Status No Sepsis Action Taken by Nursing No Action Required 03/26/19 13:30 03/26/19 14:00 03/26/19 14:30 Temperature Temperature Source Pulse Rate 95 H 104 H 102 H Pulse Rate from SpO2 Sensor 95 H 101 H 102 H Respiratory Rate 17 31 H 20 Respiratory Effort / Characteristics Respiratory Depth Blood Pressure 146/88 H 145/90 H 141/85 H Blood Pressure Mean 113 107 100 Pulse Oximetry 95 98 93 Oxygen Delivery Method Sepsis Recent Fever Within 48 Hours Sepsis New/Unexplained Change in Mental Status Sepsis Action Taken by Nursing 03/26/19 15:00 03/26/19 15:30 03/26/19 16:00 Temperature Temperature Source Pulse Rate 107 H 113 H 108 H Pulse Rate from SpO2 Sensor 107 H 115 H 108 H Respiratory Rate 25 H 23 23 Respiratory Effort / Characteristics Respiratory Depth Blood Pressure 139/83 137/82 126/80 Blood Pressure Mean 99 97 96 Pulse Oximetry 93 96 93 Oxygen Delivery Method Sepsis Recent Fever Within 48 Hours Sepsis New/Unexplained Change in Mental Status Sepsis Action Taken by Nursing GENERAL: Chronically ill appearing. Tremulous. Awake, alert, in no distress HENT: Normocephalic, atraumatic. Oropharynx unremarkable. Mucous membranes dry. EYES: Bilateral subconjunctival hemorrhage, greater in left eye than right. Sclera non-icteric. NECK: Supple. No nuchal rigidity. FROM. No JVD. RESPIRATORY: CTAB. CARDIAC: Tachycardic rate, normal rhythm. Extremities warm and well perfused. Pulses equal. ABDOMEN: Mild epigastric discomfort. No discrete tenderness. Soft, non- distended. No rebound or guarding. No masses. RECTAL: Deferred. MUSCULOSKELETAL: Chest examination reveals no tenderness. The back is symmetrical on inspection without obvious abnormality. There is no CVA tenderness to palpation. No joint edema. LOWER EXTREMITIES: Calves are equal size bilaterally and non-tender. No edema. No discoloration. NEURO: Normal sensorium. No sensory or motor deficits noted. SKIN: No rash or jaundice noted. Course Course 1157: The patient was evaluated in room C4, and a complete history and physical examination were performed. 1448: I reevaluated the patient at this time who admitted to drinking alcohol daily. She states that she has about 1 glass of wine per day. 1502: I discussed the patients case with Anna Chambers PA-C. Dr[facility] will evaluate the patient for further management. 1510: I updated the patient at this time. Administered Medications Discontinued Medications Diphenhydramine HCl (Benadryl) 12.5 mg IV NOW STA Stop: 03/26/19 12:06 Last Admin: 03/26/19 13:15 Dose: 12.5 mg Documented by: [id number] Sodium Chloride (Nss 1000ml) 1,000 mls @ 999 mls/hr IV .Q1H1M KRISTINA Stop: 03/26/19 13:15 Last Infusion: 03/26/19 14:12 Dose: 0 mls/hr Documented by: [id number] Admin: 03/26/19 13:10 Dose: 999 mls/hr Documented by: [id number] Prochlorperazine (Compazine) 1 mls @ 1 mls/min IV ONE ONE Stop: 03/26/19 12:06 Last Admin: 03/26/19 13:20 Dose: 1 mls/min Documented by: [id number] Lorazepam (Ativan) 1 mg in 2 mls @ 2 mls/min IV NOW STA Stop: 03/26/19 12:06 Last Admin: 03/26/19 13:15 Dose: 2 mls/min Documented by: [id number] Multivitamins 10 ml/ Thiamine HCl 100 mg/ Folic Acid 1 mg/Sodium Chloride 1,011.2 mls @ 1,011.2 mls/hr IV .Q1H ONE Stop: 03/26/19 13:04 Last Infusion: 03/26/19 14:11 Dose: 0 mls/hr Documented by: [id number] Admin: 03/26/19 13:10 Dose: 1,011.2 mls/hr Documented by: [id number] Famotidine (Pepcid 20mg Iv Push) 20 mg in 5 mls @ 2.5 mls/min IV NOW STA Stop: 03/26/19 12:10 Last Admin: 03/26/19 13:25 Dose: 2.5 mls/min Documented by: [id number] Critical Care Time Critical Care Time: Yes Total Critical Care Time: 35 I have personally spent greater than 35 minutes of critical care time in the direct management of this patient. This includes bedside care, interpretation of diagnostic studies, and testing, discussion with consultants, patient, and family members, and other required patient management activities. This 35 minutes is in excess of all separately billable procedures. Medical Decision Making Differential Diagnosis Differential diagnosis: Etiologies such as gastroenteritis, food borne illness, infections, appendicitis, diverticulitis, inflammatory bowel disease, obstruction, GI bleed, biliary pathology, as well as others were entertained. Medical Records Attestation: I reviewed the patient's medical records. Home Medications Current Medication List: was personally reviewed by me Laboratory Data Attestation: I reviewed the patient's lab results. Result diagrams: 03/26/19 12:22 03/26/19 12:22 Lab Results 03/26/19 03/26/19 03/26/19 Range/Units 12:22 12:22 12:22 WBC 3.75 L (4.8-10.8) K/uL RBC 3.85 L (4.2-5.4) M/uL Hgb 12.9 (12.0-16.0) g/dL Hct 38.2 (37-47) % MCV 99.2 (80-100) fL MCH 33.5 (25-34) pg MCHC 33.8 (32-36) g/dL RDW Std Deviation 51.2 H (36.4-46.3) fL RDW Coeff of Concepcion 14.2 (11.5-14.5) % Plt Count 30 L (130-400) K/uL MPV 9.6 (7.4-10.4) fL Immature Gran % (Auto) 0.8 % Neut % (Auto) 74.7 % Lymph % (Auto) 7.7 % Evangeline % (Auto) 16.0 % Eos % (Auto) 0.5 % Baso % (Auto) 0.3 % Immature Gran # (Auto) 0.03 H (0.00-0.02) K/uL Neut # (Auto) 2.80 (1.4-6.5) K/uL Lymph # (Auto) 0.29 L (1.2-3.4) K/uL Evangeline # (Auto) 0.60 H (0.11-0.59) K/uL Eos # (Auto) 0.02 (0-0.5) K/uL Baso # (Auto) 0.01 (0-0.2) K/uL Platelet Estimate SIGNIFIC DECREASED (Normal) PT 10.9 (9.0-12.0) Seconds INR 1.1 (0.9-1.1) APTT 24.8 (21.0-31.0) Seconds PTT Ratio 0.9 Sodium 134 L (136-145) mmol/L Potassium 3.3 L (3.5-5.1) mmol/L Chloride 94 L (98-107) mmol/L Carbon Dioxide 23 (21-32) mmol/L Anion Gap 17.0 H (3-11) BUN 11 (7-18) mg/dl Creatinine 0.88 (0.6-1.2) mg/dl Est Cr Clr Drug Dosing Not Reportable Est GFR ( Amer) 79.9 Est GFR (Non-Af Amer) 68.9 BUN/Creatinine Ratio 12.2 (10-20) Glucose 153 H (70-99) mg/dl Calcium 9.0 (8.5-10.1) mg/dl Phosphorus 3.8 (2.5-4.9) mg/dl Magnesium 1.6 L (1.8-2.4) mg/dl Total Bilirubin 1.1 H (0.2-1) mg/dl Direct Bilirubin 0.6 H (0-0.2) mg/dl AST 180 H (15-37) U/L ALT 80 H (12-78) U/L Alkaline Phosphatase 144 H (45-117) U/L Troponin I < 0.015 (0-0.045) ng/ml Total Protein 7.1 (6.4-8.2) gm/dl Albumin 3.1 L (3.4-5.0) gm/dl Globulin 4.0 (2.5-4.0) gm/dl Albumin/Globulin Ratio 0.8 L (0.9-2) Lipase 387 (73-393) U/L TSH 2.590 (0.300-4.500) uIu/ml Ethyl Alcohol mg/dL (0-3) mg/dl 03/26/19 Range/Units 12:22 WBC (4.8-10.8) K/uL RBC (4.2-5.4) M/uL Hgb (12.0-16.0) g/dL Hct (37-47) % MCV (80-100) fL MCH (25-34) pg MCHC (32-36) g/dL RDW Std Deviation (36.4-46.3) fL RDW Coeff of Concepcion (11.5-14.5) % Plt Count (130-400) K/uL MPV (7.4-10.4) fL Immature Gran % (Auto) % Neut % (Auto) % Lymph % (Auto) % Evangeline % (Auto) % Eos % (Auto) % Baso % (Auto) % Immature Gran # (Auto) (0.00-0.02) K/uL Neut # (Auto) (1.4-6.5) K/uL Lymph # (Auto) (1.2-3.4) K/uL Evangeline # (Auto) (0.11-0.59) K/uL Eos # (Auto) (0-0.5) K/uL Baso # (Auto) (0-0.2) K/uL Platelet Estimate (Normal) PT (9.0-12.0) Seconds INR (0.9-1.1) APTT (21.0-31.0) Seconds PTT Ratio Sodium (136-145) mmol/L Potassium (3.5-5.1) mmol/L Chloride (98-107) mmol/L Carbon Dioxide (21-32) mmol/L Anion Gap (3-11) BUN (7-18) mg/dl Creatinine (0.6-1.2) mg/dl Est Cr Clr Drug Dosing Est GFR ( Amer) Est GFR (Non-Af Amer) BUN/Creatinine Ratio (10-20) Glucose (70-99) mg/dl Calcium (8.5-10.1) mg/dl Phosphorus (2.5-4.9) mg/dl Magnesium (1.8-2.4) mg/dl Total Bilirubin (0.2-1) mg/dl Direct Bilirubin (0-0.2) mg/dl AST (15-37) U/L ALT (12-78) U/L Alkaline Phosphatase (45-117) U/L Troponin I (0-0.045) ng/ml Total Protein (6.4-8.2) gm/dl Albumin (3.4-5.0) gm/dl Globulin (2.5-4.0) gm/dl Albumin/Globulin Ratio (0.9-2) Lipase (73-393) U/L TSH (0.300-4.500) uIu/ml Ethyl Alcohol mg/dL 47.0 H (0-3) mg/dl Imaging Data Radiologist's Impression: Radiology results as stated below per my review and the radiologist's interpretation: XR chest 1V portable CLINICAL HISTORY: Chest Pain pain COMPARISON STUDY: 08/18/2018 FINDINGS: The bones soft tissues and hemidiaphragms are normal. The cardiomediastinal silhouette is normal. The lungs are clear. The pulmonary vasculature is normal. IMPRESSION: Negative chest. ACT 112: Negative or not required by law. The above report was generated using voice recognition software. It may contain grammatical, syntax or spelling errors. Electronically signed by: Danny Murphy M.D. 03/26/2019 12:40 PM ECG Data Attestation: I personally reviewed and interpreted this ECG as follows: Indication: + vomiting Rate (beats per minute): 103 Rhythm: + sinus tachycardia ECG Intervals/blocks: + Normal QRS (66) and + Normal QT-c (437) ECG [place]: + Normal ECG ST segments: no ST depression and no ST elevation ECG Findings: no PACs and no PVCs Blood Pressure Blood Pressure Findings: Elevated blood pressure Blood Pressure Disposition: further management by hospitalist ABHISHEK Narrative The patient is a 63-year-old woman with a past medical history of alcohol abuse, alcohol withdrawal/dependence, hypertension, hyperlipidemia, history of pancreatitis who presents emergency department with tremulousness with nausea over the past several days developing nausea and vomiting today per HPI. On arrival patient is ill and uncomfortable appearing but no acute distress, afebrile with heart rate in the 100s and otherwise stable vital signs. Patient appears clinically dry. She does have noticeable subconjunctival hemorrhage of her eyes with left greater than right. She reports this occurs intermittently "from being on Plavix." She has mild epigastric discomfort without discrete tenderness. EKG without acute ischemia. Chest x-ray negative for acute process. WBC 3.7, nonspecific and similar to prior. H/H within normal limits. Platelets 30K which are decreased from prior values of chronic thrombocytopenia. Chemistry with anion gap of 17 but with a bicarb of 23. Potassium 3.3. Magnesium 1.6 with repletion provided. LFTs slightly elevated from recent however within prior range of values. Total bilirubin 1.1, direct bilirubin 0.6. AST, ALT, and alk phos 180, 80, 144, respectively consistent with likely alcoholic hepatitis pattern. Troponin negative/undetectable. Lipase within normal limits. Alcohol level was detectable at 47. Patient was reevaluated and was appearing improved after IV fluid hydration, Compazine, Benadryl, Pepcid, Ativan x 2 and banana bag. CIWA ordered. I did confront the patient regarding her detectable alcohol level and while she initially attempted to continue to deny alcohol in the past 2 months she ultimately admitted to drinking though she again minimizes what is her likely consumption saying that she "only drinks 1 glass of wine a night. The patient's family member return to the room and also participated in this discussion and I emphasized the likely etiology of the patient's symptoms is her alcohol dependence with withdrawal in today with a likely component of gastritis. They were agreeable for plan for admission. Case was discussed with Peter Childress PA-C, who evaluate the patient for admission. Impression & Plan Alcohol withdrawal, Transaminitis, Thrombocytopenia, Gastritis, Hypomagnesemia, Hypokalemia Discharge Plan Visit Data Chief Complaint: Vomiting Stated Complaint: LIVER/PANCREAS ISSUSES,WONT EAT,SHAKEY,VOMTING ED Provider: Aristeo Rapp Discharge Problem: Alcohol withdrawal, Transaminitis, Thrombocytopenia, Gastritis, Hypomagnesemia, Hypokalemia Patient Disposition: Being Evaluated by Hospitalist Forms Stand Alone Forms: [facility] Prescriptions Prescriptions: No Action fluticasone propion-salmeterol [Advair Diskus] 250-50 mcg/dose Blister With Device 1 inh INHALATION BID RF: 0 cetirizine [Zyrtec] 10 mg Tablet 10 mg PO DAILY PRN (Reason: Allergy Symptoms) RF: 0 triamterene-hydrochlorothiazid [Maxzide] 75-50 mg Tablet 1 tab PO DAILY RF: 0 Centrum Silver Women 8 mg iron-400 mcg-300 mcg Tablet 1 tab PO QAM RF: 0 clopidogrel 75 mg tablet 75 mg PO QAM RF: 0 simvastatin 20 mg tablet 20 mg PO HS RF: 0 albuterol sulfate 90 mcg/actuation Hfa Aerosol Inhaler 1 puff INHALATION DIRECTED PRN (Reason: Wheezing) RF: 0 calcium carbonate-vitamin D3 [Calcium 600 + D(3)] 600 mg(1,500mg) -400 unit Tablet 1 tab PO DAILY RF: 0 verapamil 360 mg capsule,ext rel. pellets 24 hr 360 mg PO DAILY RF: 0 Referrals Referrals: Comfort Mendoza, [Primary Care Provider] - Discharge Problem: Alcohol withdrawal Qualifiers: Complication of substance-induced condition: with unspecified complication Qualified Code(s): F10.239 - Alcohol dependence with withdrawal, unspecified Gastritis Qualifiers: Gastritis type: unspecified gastritis Chronicity: unspecified Gastritis bleeding: presence of bleeding unspecified Qualified Code(s): K29.70 - Gastritis, unspecified, without bleeding The scribe's documentation has been prepared under my direction and personally reviewed by me in its entirety. I confirm that the note above accurately reflects all work, treatment, procedures, and medical decision making performed by me.
[2019-03-26] MEDS ORDERED: GABAPENTIN 1200MG ALCOHOL WITHDRAWAL LOAD PO STA (17:44)
[2019-03-26] MEDS ORDERED: ONDANSETRON INJ 2 MG/ML 2 ML VIAL IV PRN (17:44)
[2019-03-26] MEDS ORDERED: POLYETHYLENE (MIRALAX) 17 GM PACK PO PRN (17:44)
[2019-03-26] MEDS ORDERED: ATIVAN IV ALCOHOL WITHDRAWL IV PRN (17:44)
[2019-03-26] MEDS ORDERED: LORazepam 2 MG/4 ML VIAL IV PRN (17:44)
[2019-03-26] MEDS ORDERED: MAGNESIUM HYDROXIDE SUSP 30 ML UDC PO PRN (17:44)
[2019-03-26] MEDS ORDERED: LORazepam 3 MG/6 ML VIAL IV PRN (17:44)
[2019-03-26] MEDS ORDERED: ACETAMINOPHEN 325 MG TAB PO PRN (17:44)
[2019-03-26] MEDS ORDERED: ALUMINUM/MAGNESIUM SUSP 30 ML UDC PO PRN (17:44)
[2019-03-26] MEDS: THIAMINE HCL 100 MG in SYRINGE 9 ML IV STA ×2 (17:48→18:08)
[2019-03-26] MEDS ORDERED: GABAPENTIN 600 MG TAB PO SCH (18:00)
[2019-03-26] MEDS: NSS + 20MEQ KCL 20 MEQ/1,000 ML BAG IV SCH (18:29)
[2019-03-26] MEDS: FOLIC ACID 1 MG TAB PO SCH (18:31)
[2019-03-26 21:38] LABS: BUN Creatinine Ratio 10.3 (10-20); Calcium 8.1 mg/dl (8.5-10.1); Creatinine Clr Calc Pharmacy 62.5 ml/min; Est GFR (African American) 103.6; Est GFR (Non-African American) 89.4
[2019-03-26 21:54] LABS: Mean Corpuscular Hgb Conc 33.6 g/dL (32-36); Mean Platelet Volume 10.4 fL (7.4-10.4); Platelet Count 26 K/uL (130-400)
[2019-03-26 21:55] LABS: Hematocrit (blood only) 34.2 % (37-47); Hemoglobin 11.5 g/dL (12.0-16.0); Mean Corpuscular Hemoglobin 33.2 pg (25-34); Mean Corpuscular Volume 98.8 fL (80-100); Platelet Estimate SIGNIFIC DECREASED (Normal); RDW Coefficient of Variation 14.2 % (11.5-14.5); RDW Standard Deviation 50.3 fL (36.4-46.3); Red Blood Count 3.46 M/uL (4.2-5.4); White Blood Count 3.48 K/uL (4.8-10.8)
--- NOTE | 2019-03-26 22:05 | Electrocardiogram Report ---
Test Reason : Blood Pressure : / mmHG Vent. Rate : 103 BPM Atrial Rate : 103 BPM P-R Int : 156 ms QRS Dur : 066 ms QT Int : 334 ms P-R-T Axes : 050 060 016 degrees QTc Int : 437 ms Sinus tachycardia Otherwise normal ECG When compared with ECG of 19-AUG-2018 06:42, T wave inversion now evident in Inferior leads Confirmed by Jeff Nolasco ([id number]) on 03/26/2019 10:05:05 PM Referred By: REFERRED SELF Confirmed By:Jeff Nolasco
[2019-03-26] MEDS: GABAPENTIN 600 MG TAB PO SCH (23:49)
[2019-03-27 00:21] LABS: Appearance Urine Clear (Clear); Bilirubin Urine Negative (Negative); Blood Urine Negative (Negative); Color Urine Yellow; Glucose Urine UA Trace (Negative); Ketones Urine 1+ (Negative); Leukocyte Esterase Urine Negative (Negative); Nitrite Urine Negative (Negative); Protein Urine Negative (Negative); Specific Gravity Urine 1.009 (1.000-1.030); Urobilinogen Urine Negative (Negative)
[2019-03-27] MEDS: LORazepam 1 MG/2 ML VIAL IV PRN ×2 (00:23→14:59)
[2019-03-27] MEDS: NSS + 20MEQ KCL 20 MEQ/1,000 ML BAG IV SCH ×3 (02:17→18:18)
[2019-03-27] MEDS: GABAPENTIN 600 MG TAB PO SCH ×3 (05:30→22:50)
[2019-03-27 06:11] LABS: Hematocrit (blood only) 35.6 % (37-47); Hemoglobin 11.7 g/dL (12.0-16.0); Mean Corpuscular Hemoglobin 33.1 pg (25-34); Mean Corpuscular Hgb Conc 32.9 g/dL (32-36); Mean Corpuscular Volume 100.6 fL (80-100); Mean Platelet Volume 10.4 fL (7.4-10.4); Platelet Count 29 K/uL (130-400); RDW Coefficient of Variation 14.3 % (11.5-14.5); RDW Standard Deviation 52.5 fL (36.4-46.3); Red Blood Count 3.54 M/uL (4.2-5.4); White Blood Count 3.11 K/uL (4.8-10.8)
[2019-03-27 06:28] LABS: Basophils # (auto) 0.01 K/uL (0-0.2); Basophils % (auto) 0.3 %; Eosinophils # (auto) 0.12 K/uL (0-0.5); Eosinophils % (auto) 3.9 %; Giant Platelets 2+; Immature Granulocytes # (auto) 0.03 K/uL (0.00-0.02); Lymphocytes # (auto) 0.32 K/uL (1.2-3.4); Lymphocytes % (auto) 10.3 %; Monocytes # (auto) 0.34 K/uL (0.11-0.59); Monocytes % (auto) 10.9 %; Neutrophils # (auto) 2.29 K/uL (1.4-6.5); Neutrophils % (auto) 73.6 %
[2019-03-27 06:31] LABS: Albumin Level 2.8 gm/dl (3.4-5.0); BUN Creatinine Ratio 10.6 (10-20); Calcium 8.1 mg/dl (8.5-10.1); Creatinine Clr Calc Pharmacy 69.3 ml/min; Est GFR (African American) 108.5; Est GFR (Non-African American) 93.6; Magnesium 2.2 mg/dl (1.8-2.4); Potassium 4.1 mmol/L (3.5-5.1)
[2019-03-27 06:34] LABS: Albumin Globulin Ratio 0.8 (0.9-2); Bilirubin,Total 1.3 mg/dl (0.2-1); Globulin 3.6 gm/dl (2.5-4.0); Phosphorus 2.7 mg/dl (2.5-4.9); Total Protein 6.4 gm/dl (6.4-8.2)
[2019-03-27] MEDS: FLUTICASONE/VILANTEROL 200/25MCG 14 PUFFS/INHALER INH SCH (08:16)
[2019-03-27] MEDS: MULTIVITAMIN TAB PO SCH (08:17)
[2019-03-27] MEDS: FOLIC ACID 1 MG TAB PO SCH (08:17)
[2019-03-27] MEDS: VERAPAMIL HCL 180 MG TABCR PO SCH (08:17)
[2019-03-27] MEDS: THIAMINE HCL 100 MG in SYRINGE 9 ML IV SCH (08:18)
--- NOTE | 2019-03-27 14:41 | Hospitalist Progress Note ---
Date of Service March 27, 2019 Assessment & Plan (1) Alcohol withdrawal: 63-year-old female who has a significant past medical history of HTN, asthma, pre-DM, history of splenic artery aneurysm status post coil closure with stent placement 05/17/2018, history of EtOH abuse, Elevated transaminitis, thrombocytopenia, diastolic dysfunction who presents to [facility] ED secondary to nausea, vomiting, feeling unwell and tremors x1 to 2 days. ETOH level 47 Tremors improving Continue AWSS protocol with gabapentin taper and lorazpam Got MVI IVF in ED Continue thiamine, folic acid, MVI daily will need PT/OT eval when acute withdrawal phase over continue IVF Counselled patient extensively on need to quit alcohol. She stated that she will not continue after this hospitalization. I discussed resources to aid her stay off alcohol (2) Ambulatory dysfunction: In setting of chronic alcohol abuse and alcohol withdrawal Continue thiamine and folate Will need PT OT eval (3) Transaminitis: AST 180, ALT 80, ALP 144, Tbli 1.1 consistent with ETOH abuse LFT improving. Will continue to monitor Had RUQ US 08/2018 revealing hepatic steatosis (4) Thrombocytopenia: History of chronic thrombocytopenia in the setting of alcohol abuse Platelet count 29 today Continue to hold Plavix and monitor platelet Per H/P, Admitting Provider discussed with patient's vascular surgeon CLARISSA who agrees also (5) Hypomagnesemia: Mag 1.6 on admission Repleted 2.2 this AM (6) Hypokalemia: Being repleted K is 4.1 this AM Continue to monitor (7) Splenic artery aneurysm: S/P coil closure on 05/17/2018 Follows [facility] vascular. Was seen on 02/20/2019 Admitting provider discussed with CLARISSA Geronimo who discussed with Dr. Camara, recommends holding plavix for now until platelets recover Will follow up with vascular as outpt (8) HTN (hypertension): Stable Continue verapamil Hold Maxide given electrolyte abnormalities and volume depletion (9) DVT prophylaxis: None secondary to thrombocytopenia, easy bruisability Admission and Anticipated Discharge Date Admission Date: March 26, 2019 Subjective Patient seen and examined Reports shakiness is improved. Denied any nausea, vomiting Denied any tactile, auditory or visual hallucinations Denied any anxiety, diaphoresis Denied any chest pain, palpitation, shortness of breath, cough Physical Exam Constitutional: no acute distress Eyes: + corneal abnormality (left subcorneal hemorrhage (patient reports this is chronically intermitten) and PERRL Neck: trachea midline, no thyromegaly Respiratory: normal respiratory effort, lungs clear to auscultation Cardiovascular: Rate/Rhythm: regular rhythm and + tachycardic Gastrointestinal (Abdomen): normal bowel sounds, soft, nontender, no hepatosplenomegaly Musculoskeletal: no cyanosis or clubbing, extremities motor strength 5/5 Skin: ecchymoses Neurologic: PERRL, EOMI, accommodation nl, no face palsy, no dysarthria Motor/Sensory: + tremor (fine tremors in bilateral upper extremities) Psychiatric: A+Ox3, euthymic affect Results & Data ([facility]) Vital Signs (Past 12 Hours) Vital Signs Temp Pulse Pulse Resp BP BP Pulse Ox 03/27/19 11:12 37.3 C 104 H 14 104/70 97 03/27/19 08:00 86 03/27/19 06:58 36.5 C 87 18 132/88 96 03/27/19 04:15 37.1 C 91 H 18 132/87 96 Laboratory Results Abnormal lab results 03/26/19 03/26/19 03/27/19 Range/Units 21:03 21:03 05:25 WBC 3.48 L 3.11 L (4.8-10.8) K/uL RBC 3.46 L 3.54 L (4.2-5.4) M/uL Hgb 11.5 L 11.7 L (12.0-16.0) g/dL Hct 34.2 L 35.6 L (37-47) % MCV 100.6 H (80-100) fL RDW Std Deviation 50.3 H 52.5 H (36.4-46.3) fL Plt Count 26 L* 29 L* (130-400) K/uL Immature Gran # (Auto) 0.03 H (0.00-0.02) K/uL Lymph # (Auto) 0.32 L (1.2-3.4) K/uL Sodium 132 L (136-145) mmol/L Glucose 212 H (70-99) mg/dl Calcium 8.1 L (8.5-10.1) mg/dl Total Bilirubin (0.2-1) mg/dl AST (15-37) U/L Albumin (3.4-5.0) gm/dl Albumin/Globulin Ratio (0.9-2) Urine pH (4.5-7.5) Urine Glucose (UA) (Negative) Urine Ketones (Negative) 03/27/19 03/27/19 Range/Units 05:25 Unknown WBC (4.8-10.8) K/uL RBC (4.2-5.4) M/uL Hgb (12.0-16.0) g/dL Hct (37-47) % MCV (80-100) fL RDW Std Deviation (36.4-46.3) fL Plt Count (130-400) K/uL Immature Gran # (Auto) (0.00-0.02) K/uL Lymph # (Auto) (1.2-3.4) K/uL Sodium (136-145) mmol/L Glucose 123 H (70-99) mg/dl Calcium 8.1 L (8.5-10.1) mg/dl Total Bilirubin 1.3 H (0.2-1) mg/dl AST 93 H (15-37) U/L Albumin 2.8 L (3.4-5.0) gm/dl Albumin/Globulin Ratio 0.8 L (0.9-2) Urine pH 8.0 H (4.5-7.5) Urine Glucose (UA) Trace H (Negative) Urine Ketones 1+ H (Negative) (1) Alcohol withdrawal Complication of substance-induced condition: with unspecified complication Qualified Code(s): F10.239 - Alcohol dependence with withdrawal, unspecified
[2019-03-27 19:29] LABS: BUN Creatinine Ratio 10.2 (10-20); Calcium 7.8 mg/dl (8.5-10.1); Creatinine Clr Calc Pharmacy 41.5 ml/min; Est GFR (African American) 63.1; Est GFR (Non-African American) 54.4; Potassium 4.6 mmol/L (3.5-5.1)
[2019-03-28] MEDS: NSS + 20MEQ KCL 20 MEQ/1,000 ML BAG IV SCH ×3 (01:18→17:09)
[2019-03-28 06:13] LABS: INR 1.1 (0.9-1.1); Prothrombin Time 11.4 Seconds (9.0-12.0)
[2019-03-28] MEDS: GABAPENTIN 600 MG TAB PO SCH ×2 (06:41→17:09)
[2019-03-28 06:46] LABS: Albumin Globulin Ratio 0.7 (0.9-2); Albumin Level 2.3 gm/dl (3.4-5.0); BUN Creatinine Ratio 9.6 (10-20); Bilirubin,Total 1.2 mg/dl (0.2-1); Calcium 7.8 mg/dl (8.5-10.1); Creatinine Clr Calc Pharmacy 58.4 ml/min; Est GFR (African American) 95.4; Est GFR (Non-African American) 82.3; Globulin 3.3 gm/dl (2.5-4.0); Magnesium 1.7 mg/dl (1.8-2.4); Potassium 3.9 mmol/L (3.5-5.1); Total Protein 5.6 gm/dl (6.4-8.2)
[2019-03-28] MEDS: FLUTICASONE/VILANTEROL 200/25MCG 14 PUFFS/INHALER INH SCH (07:18)
[2019-03-28] MEDS: VERAPAMIL HCL 180 MG TABCR PO SCH (07:20)
[2019-03-28] MEDS: FOLIC ACID 1 MG TAB PO SCH (07:20)
[2019-03-28] MEDS: THIAMINE HCL 100 MG in SYRINGE 9 ML IV SCH (07:21)
[2019-03-28] MEDS: MULTIVITAMIN TAB PO SCH (07:21)
[2019-03-28] MEDS ORDERED: MAGNESIUM SULFATE / D5W 1 GM/100 ML BAG IV ONE (08:45)
--- NOTE | 2019-03-28 14:35 | Hospitalist Progress Note ---
Date of Service March 28, 2019 Assessment & Plan (1) Alcohol withdrawal: 63-year-old female who has a significant past medical history of HTN, asthma, pre-DM, history of splenic artery aneurysm status post coil closure with stent placement 05/17/2018, history of EtOH abuse, Elevated transaminitis, thrombocytopenia, diastolic dysfunction who presents to [facility] ED secondary to nausea, vomiting, feeling unwell and tremors x1 to 2 days. ETOH level 47 on admission Continue AWSS protocol with gabapentin taper and lorazpam Got MVI IVF in ED Continue thiamine, folic acid, MVI daily PT/OT eval (2) Ambulatory dysfunction: Based on history, likely related to chronic alcohol use. Possible wernicke Continue thiamine and folate PT OT eval (3) Transaminitis: AST 180, ALT 80, ALP 144, Tbli 1.1 on admission LFT improving. Will continue to monitor Had RUQ US 08/2018 revealing hepatic steatosis (4) Thrombocytopenia: History of chronic thrombocytopenia in the setting of alcohol abuse Continue to hold Plavix and monitor platelet Per H/P, Admitting Provider discussed with patient's vascular surgeon CLARISSA who agrees also Monitor platelet and transfuse if <10k or with bleeding (5) Hypomagnesemia: Mag 1.7 today Repleted Continue to monitor (6) Hypokalemia: Being repleted K is 3.9 this AM Continue to monitor (7) Splenic artery aneurysm: S/P coil closure on 05/17/2018 Follows [facility] vascular. Was seen on 02/20/2019 Admitting provider discussed with CLARISSA Geronimo who discussed with Dr. Camara, recommends holding plavix for now until platelets recover Will follow up with vascular as outpt (8) HTN (hypertension): Stable Continue verapamil Hold Maxide given electrolyte abnormalities and volume depletion (9) DVT prophylaxis: None secondary to thrombocytopenia, easy bruisability Admission and Anticipated Discharge Date Admission Date: March 26, 2019 Subjective Patient still tremulous Had gait abnormality and problem ambulating today around with a walker. Per RN, reported patient has been having tremulousness before this hospitalization. Patient confirms that she has had intermittent shaking and tremulousness over the past few years. She did not relate this to alcohol use. She denied any focal weakness, numbness or paresthesias. Patient denies any hallucinations or anxiety. Denies any memory deficit. Physical Exam Constitutional: no acute distress Eyes: + corneal abnormality ((left subcorneal hemorrhage (patient reports this is chronically intermitte) and PERRL Respiratory: normal respiratory effort, lungs clear to auscultation Cardiovascular: RRR, no murmur, no edema Gastrointestinal (Abdomen): normal bowel sounds, soft, nontender, no hepatosplenomegaly Musculoskeletal: no cyanosis or clubbing, extremities motor strength 5/5 Gait: + abnormal gait Neurologic: PERRL, EOMI, accommodation nl, no face palsy, no dysarthria no focal motor deficits Motor/Sensory: + tremor Psychiatric: A+Ox3, euthymic affect Results & Data ([facility]) Vital Signs (Past 12 Hours) Vital Signs Temp Pulse Pulse Pulse Resp BP BP 03/28/19 11:09 37.4 C 96 H 18 107/67 03/28/19 08:09 103 H 03/28/19 07:06 36.7 C 98 H 16 153/88 H 03/28/19 02:48 37.6 C H 112 H 20 120/83 Pulse Ox 03/28/19 11:09 95 03/28/19 08:09 03/28/19 07:06 96 03/28/19 02:48 95 Laboratory Results Abnormal lab results 03/27/19 03/28/19 Range/Units 19:07 05:34 Sodium 132 L (136-145) mmol/L Chloride 108 H (98-107) mmol/L BUN/Creatinine Ratio 9.6 L (10-20) Glucose 165 H 194 H (70-99) mg/dl Calcium 7.8 L 7.8 L (8.5-10.1) mg/dl Magnesium 1.7 L (1.8-2.4) mg/dl Total Bilirubin 1.2 H (0.2-1) mg/dl AST 66 H (15-37) U/L Total Protein 5.6 L (6.4-8.2) gm/dl Albumin 2.3 L (3.4-5.0) gm/dl Albumin/Globulin Ratio 0.7 L (0.9-2) (1) Alcohol withdrawal Complication of substance-induced condition: with unspecified complication Qualified Code(s): F10.239 - Alcohol dependence with withdrawal, unspecified
[2019-03-28] MEDS: ALBUTEROL 0.083% NEBU SOLN 3 ML VIAL NEB PRN (16:14)
--- NOTE | 2019-03-28 18:48 | CT Scan Report ---
CT SCAN OF THE BRAIN WITHOUT IV CONTRAST CLINICAL HISTORY: Gait abnormality. COMPARISON STUDY: CT of the brain dated 08/18/2018. TECHNIQUE: Unenhanced axial CT scan of the brain is performed from the vertex to the skull base. A do se lowering technique was utilized adhering to the principles of ALARA. CT DOSE: 537.48 mGy.cm FINDINGS: Brain parenchyma: There are age-related involutional changes noting mild subcortical and periventric ular microangiopathic change. There is no hemorrhage, mass effect, or evidence of acute territorial i schemia by CT criteria. Mineralization is noted in the basal ganglia. Castellon-white matter differentiati on is preserved. No extra-axial fluid collection is seen. Ventricles, sulci, cisterns: Prominent secondary to involutional change. Intracranial vasculature: There is atherosclerotic calcification of the cavernous carotid and vertebr al arteries. Calvarium: Unremarkable. Sinuses and mastoids: The visualized paranasal sinuses are clear. The mastoid air cells are well pneu matized. Orbits: The bony orbits are grossly intact. IMPRESSION: There is no hemorrhage, mass effect, or evidence of acute territorial ischemia by CT crit erelvi. ACT 112: Negative or not required by law. Electronically signed by: Jose Cruz Blanco M.D. 03/28/2019 6:47 PM
[2019-03-29] MEDS: ALBUTEROL 0.083% NEBU SOLN 3 ML VIAL NEB PRN (00:58)
[2019-03-29] MEDS: NSS + 20MEQ KCL 20 MEQ/1,000 ML BAG IV SCH (05:46)
[2019-03-29] MEDS: GABAPENTIN 600 MG TAB PO SCH (05:48)
[2019-03-29 06:56] LABS: Hemoglobin 10.9 g/dL (12.0-16.0); Mean Corpuscular Hemoglobin 33.4 pg (25-34); Mean Corpuscular Volume 101.2 fL (80-100); RDW Coefficient of Variation 13.9 % (11.5-14.5); RDW Standard Deviation 51.5 fL (36.4-46.3); Red Blood Count 3.26 M/uL (4.2-5.4); White Blood Count 3.02 K/uL (4.8-10.8)
[2019-03-29 07:05] LABS: Mean Platelet Volume 10.2 fL (7.4-10.4); Platelet Count 32 K/uL (130-400)
[2019-03-29 07:27] LABS: Albumin Level 2.3 gm/dl (3.4-5.0); BUN Creatinine Ratio 10.1 (10-20); Creatinine Clr Calc Pharmacy 56.9 ml/min; Est GFR (African American) 92.5; Est GFR (Non-African American) 79.8; Magnesium 1.5 mg/dl (1.8-2.4); Potassium 3.5 mmol/L (3.5-5.1)
[2019-03-29 07:40] LABS: Albumin Globulin Ratio 0.7 (0.9-2); Bilirubin,Total 1.3 mg/dl (0.2-1); Globulin 3.4 gm/dl (2.5-4.0); Phosphorus 1.5 mg/dl (2.5-4.9); Total Protein 5.7 gm/dl (6.4-8.2)
[2019-03-29] MEDS ORDERED: POTASSIUM PHOS 3 MMOL/1 ML INFUSION IV STA (07:43)
[2019-03-29] MEDS: FLUTICASONE/VILANTEROL 200/25MCG 14 PUFFS/INHALER INH SCH (07:46)
[2019-03-29] MEDS: MULTIVITAMIN TAB PO SCH (07:47)
[2019-03-29] MEDS: VERAPAMIL HCL 180 MG TABCR PO SCH (07:47)
[2019-03-29] MEDS: FOLIC ACID 1 MG TAB PO SCH (07:47)
[2019-03-29] MEDS: MAGNESIUM SULFATE / D5W 1 GM/100 ML BAG IV SCH ×2 (07:58→09:07)
[2019-03-29] MEDS: MAGNESIUM OXIDE 400 MG TAB PO SCH (07:58)
[2019-03-29] MEDS ORDERED: POTASSIUM PHOSPHATE 40 MMOL in SODIUM CHLORIDE 0.9% 1000ML 1,000 ML IV ONE (08:30)
[2019-03-29] MEDS: LORazepam 1 MG/2 ML VIAL IV PRN ×2 (09:08→17:11)
[2019-03-29] MEDS: THIAMINE HCL 100 MG TAB PO SCH (09:08)
--- NOTE | 2019-03-29 09:53 | Hospitalist Progress Note ---
Date of Service March 29, 2019 Assessment & Plan (1) Alcohol withdrawal: 63-year-old female who has a significant past medical history of HTN, asthma, pre-DM, history of splenic artery aneurysm status post coil closure with stent placement 05/17/2018, history of EtOH abuse, Elevated transaminitis, thrombocytopenia, diastolic dysfunction who presents to [facility] ED secondary to nausea, vomiting, feeling unwell and tremors x1 to 2 days. ETOH level 47 on admission Continue AWSS protocol with gabapentin taper and lorazpam Got MVI IVF in ED Continue thiamine, folic acid, MVI daily PT/OT eval today (2) Ambulatory dysfunction: Based on history, likely related to chronic alcohol use. Possible wernicke Continue thiamine and folate PT OT eval today (3) Transaminitis: AST 180, ALT 80, ALP 144, Tbli 1.1 on admission LFT improving. Will continue to monitor Had RUQ US 08/2018 revealing hepatic steatosis (4) Thrombocytopenia: History of chronic thrombocytopenia in the setting of alcohol abuse Platelet is 32 today Continue to hold Plavix and monitor platelet Per H/P, Admitting Provider discussed with patient's vascular surgeon CLARISSA who agrees also Monitor platelet and transfuse if <10k or with bleeding (5) Hypomagnesemia: Mag 1.5 today Replete with iv and po Continue to monitor (6) Hypokalemia: K is 3.5 today Hypophosphatemia Being repleted (7) Splenic artery aneurysm: S/P coil closure on 05/17/2018 Follows [facility] vascular. Was seen on 02/20/2019 Admitting provider discussed with CLARISSA Geronimo who discussed with Dr. Camara, recommends holding plavix for now until platelets recover Will follow up with vascular as outpt (8) HTN (hypertension): Stable Continue verapamil Hold Maxide given electrolyte abnormalities and volume depletion (9) DVT prophylaxis: None secondary to thrombocytopenia, easy bruisability Admission and Anticipated Discharge Date Admission Date: March 26, 2019 Subjective Patient seen and examined Reports she feels much better. Still has tremors. She states this is her baseline tremors. Denied any hallucinations, anxiety, diaphoresis Denied any chest pain, SOB, cough Denied any hematochezia, melena, epistaxis Physical Exam Constitutional: + well hydrated; no acute distress Eyes: Left subconjuctival hemorrhage with some extension onto cornea (reports this is chronically intermittent, no blurred vision reported, stable) ENMT: external ear and nose normal, oropharynx normal Respiratory: normal respiratory effort, lungs clear to auscultation Cardiovascular: RRR, no murmur, no edema Gastrointestinal (Abdomen): normal bowel sounds, soft, nontender, no hepatosplenomegaly Musculoskeletal: no cyanosis or clubbing, extremities motor strength 5/5 Neurologic: PERRL, EOMI, accommodation nl, no face palsy, no dysarthria Motor/Sensory: + tremor Psychiatric: A+Ox3, euthymic affect Results & Data ([facility]) Vital Signs (Past 12 Hours) Vital Signs Temp Pulse Pulse Pulse Resp BP BP 03/29/19 08:04 37.2 C 99 H 19 112/71 03/29/19 03:29 37 C 97 H 18 150/87 H 03/29/19 03:00 37.1 C 107 H 19 166/88 H 03/29/19 01:00 74 18 03/29/19 00:00 37.8 C H 94 H 98 H 19 116/70 Pulse Ox 03/29/19 08:04 97 03/29/19 03:29 97 03/29/19 03:00 96 03/29/19 01:00 98 03/29/19 00:00 96 Laboratory Results Abnormal lab results 03/29/19 03/29/19 Range/Units 06:47 06:47 WBC 3.02 L (4.8-10.8) K/uL RBC 3.26 L (4.2-5.4) M/uL Hgb 10.9 L (12.0-16.0) g/dL Hct 33.0 L (37-47) % MCV 101.2 H (80-100) fL RDW Std Deviation 51.5 H (36.4-46.3) fL Plt Count 32 L (130-400) K/uL Glucose 258 H (70-99) mg/dl Calcium 8.0 L (8.5-10.1) mg/dl Phosphorus 1.5 L* (2.5-4.9) mg/dl Magnesium 1.5 L (1.8-2.4) mg/dl Total Bilirubin 1.3 H (0.2-1) mg/dl AST 58 H (15-37) U/L Total Protein 5.7 L (6.4-8.2) gm/dl Albumin 2.3 L (3.4-5.0) gm/dl Albumin/Globulin Ratio 0.7 L (0.9-2) (1) Alcohol withdrawal Complication of substance-induced condition: with unspecified complication Qualified Code(s): F10.239 - Alcohol dependence with withdrawal, unspecified
[2019-03-29] MEDS ORDERED: GLUCOSE 40% GEL 15 GM TUBE PO PRN (14:15)
[2019-03-29] MEDS ORDERED: GLUCOSE 10 TABS/TUBE PO PRN (14:15)
[2019-03-29] MEDS ORDERED: CARBOHYDRATES FOR HYPOGLYCEMIA PO PRN (14:15)
[2019-03-29] MEDS ORDERED: GLUCAGON FOR INJ 1 MG VIAL IM PRN (14:15)
[2019-03-29] MEDS ORDERED: DEXTROSE 50% 50 ML SYRINGE IV PRN (14:15)
[2019-03-29] MEDS: INSULIN ASPART 100 UNITS/ML 3 ML PEN SC SCH ×2 (17:12→21:03)
[2019-03-30] MEDS ORDERED: GABAPENTIN 600 MG TAB PO SCH (06:00)
[2019-03-30 06:20] LABS: Albumin Level 2.5 gm/dl (3.4-5.0); BUN Creatinine Ratio 11.8 (10-20); Calcium 8.4 mg/dl (8.5-10.1); Creatinine Clr Calc Pharmacy 54.1 ml/min; Est GFR (Non-African American) 75.1; Magnesium 1.7 mg/dl (1.8-2.4); Potassium 3.7 mmol/L (3.5-5.1)
[2019-03-30 06:25] LABS: Hemoglobin 11.3 g/dL (12.0-16.0); Mean Corpuscular Hemoglobin 33.5 pg (25-34); Mean Corpuscular Hgb Conc 33.2 g/dL (32-36); Mean Corpuscular Volume 100.9 fL (80-100); Mean Platelet Volume 11.2 fL (7.4-10.4); Platelet Count 62 K/uL (130-400); Platelet Estimate Decreased (Normal); RDW Coefficient of Variation 14.2 % (11.5-14.5); RDW Standard Deviation 51.8 fL (36.4-46.3); Red Blood Count 3.37 M/uL (4.2-5.4); White Blood Count 3.11 K/uL (4.8-10.8)
[2019-03-30 06:30] LABS: Albumin Globulin Ratio 0.7 (0.9-2); Bilirubin,Total 1.3 mg/dl (0.2-1); Globulin 3.8 gm/dl (2.5-4.0); Phosphorus 3.1 mg/dl (2.5-4.9); Total Protein 6.3 gm/dl (6.4-8.2)
[2019-03-30] MEDS: INSULIN ASPART 100 UNITS/ML 3 ML PEN SC SCH (08:52)
[2019-03-30] MEDS: MAGNESIUM SULFATE / D5W 1 GM/100 ML BAG IV SCH ×2 (08:57→09:49)
[2019-03-30] MEDS: VERAPAMIL HCL 180 MG TABCR PO SCH (09:02)
[2019-03-30] MEDS: FOLIC ACID 1 MG TAB PO SCH (09:02)
[2019-03-30] MEDS: MAGNESIUM OXIDE 400 MG TAB PO SCH (09:02)
[2019-03-30] MEDS: THIAMINE HCL 100 MG TAB PO SCH (09:03)
[2019-03-30] MEDS: MULTIVITAMIN TAB PO SCH (09:03)
--- NOTE | 2019-03-30 10:11 | Discharge Summary ---
Date of Service March 30, 2019 Admission HPI Per Admitting Provider This is a 63-year-old female who has a significant past medical history of HTN, asthma, pre-DM, history of splenic artery aneurysm status post coil closure with stent placement 05/17/2018, history of EtOH abuse, Elevated transaminitis, thrombocytopenia, diastolic dysfunction who presents to [facility] ED secondary to nausea, vomiting, feeling unwell and tremors x1 to 2 days. She elicits over the past 2 days she has had significant poor appetite, nausea, emesis, not feeling well, bilateral upper extremity tremors and difficulty with walking. She denies falling. Her last episode of emesis was prior to ED which was red liquid in nature secondary to drinking cranberry juice. Denies any marco hematemesis or hemoptysis. She does have left a bloodshot eye. "I bruise everywhere secondary to being on Plavix." She admits to not being compliant with Plavix every day because of the bruising and frequent nosebleeds. She denies any other recent illness, fever, chills, sweats, lightheadedness, dizziness, syncope, chest pain, shortness of breath, palpitations, abdominal pain, dysuria, increased urgency or frequency with urination, hematuria, melena, hematochezia. Her last BM was today. She has a past history of alcohol abuse. She states that she has been drinking half a glass of wine nightly, last drink last evening. In ED patient was tachycardic but otherwise hemodynamically stable. Her ethyl alcohol level on arrival was 47, platelet count 30, sodium 134, K3.3, chloride 94, gap 17, BUN 11, creatinine 0.88, glucose 153, mag 1.6, AST 180, ALT 80, alk phos 144, total bili 1.1, lipase WNL, TSH WNL, troponin WNL. Her EKG revealed sinus tachycardia at 103 bpm, T wave inversion noted in lead III. Chest x-ray noted no acute cardiopulmonary abnormality. In ED she received IV banana bag, additional 1 L of IVF, 1 mg of Ativan, 12.5 mg IV Benadryl, IV Compazine, 20 mg IV push Pepcid. Admission Exam Per Admitting Provider Constitutional: Thin, acutely ill female, vitals as above, NAD, sitting up in bed, answers questions appropriately, tremulous Head: Normocephalic, Atraumatic Eyes: PERRL, right conjunctivae normal, left subconjunctival hemorrhage with associated inferior periorbital ecchymosis, anicteric sclerae ENMT: external ear and nose normal, oropharynx normal with dry mucous membranes Neck: trachea midline, no thyromegaly normal visual inspection Respiratory: normal respiratory effort, lungs clear to auscultation, no wheeze, rales, rhonchi. Normal insp/exp effort, no accessory muscle use Cardiovascular: Tachycardic rate, regular rhythm, 2/6 ZULEMA noted throughout precordium, no edema Vessels: no JVD or carotid bruit Chest: normal inspection of chest Abdomen: distended abd, normal bowel sounds, soft, nontender, no hepatosplenomegaly appreciated Musculoskeletal: no cyanosis or clubbing, extremities motor strength 5/5 Skin: no rashes, bilateral upper and lower extremity ecchymosis noted, very stages of healing, warm and dry moderate turgor Neurologic: no face palsy, no dysarthria CN's II-XI intact bilaterally and moves all extremities Psychiatric: A+Ox3, euthymic affect Lymphatic: no cervical or axillary lymphadenopathy : deferred Principal Diagnosis Alcohol withdrawal Transaminitis Thrombocytopenia Electrolytes abnormalities with hypomagnesemia , hypokalemia Discharge Exam Constitutional + well hydrated and average body habitus; no acute distress Eyes PERRL and EOM intact bilaterally Left subconjunctival hemorrhage improving. ENMT external ear and nose normal, oropharynx normal Neck trachea midline, no thyromegaly Respiratory normal respiratory effort, lungs clear to auscultation Cardiovascular Rate/Rhythm: regular rate and regular rhythm Heart Sounds: normal S1 and normal S2 Trace pedal edema Gastrointestinal (Abdomen) normal bowel sounds, soft, nontender, no hepatosplenomegaly Musculoskeletal no cyanosis or clubbing, extremities motor strength 5/5 Still has mild tremors (states this is her baseline). Much improved Neurologic PERRL, EOMI, accommodation nl, no face palsy, no dysarthria Psychiatric A+Ox3, euthymic affect Discharge Data Allergies Allergy/AdvReac Type Severity Reaction Status Date / Time No Known Allergies Allergy Unverified 03/26/19 11:55 Consultations 03/26/19 14:54 ED Decision to Admit Stat 03/26/19 17:44 Consult Case Management - Discharge Planning Routine Ordered Studies 03/28/19 17:40 CT head/brain wo con Routine Hospital Course (1) Alcohol withdrawal: 63-year-old female who has a significant past medical history of HTN, ast hma, pre-DM, history of splenic artery aneurysm status post coil closure with stent placement 05/17/2018, history of EtOH abuse, Elevated transaminitis, thrombocytopenia, diastolic dysfunction who presents to [facility] ED secondary to nausea, vomiting, feeling unwell and tremors x1 to 2 days. ETOH level 47 on admission She was treated with AWSS protocol with gabapentin taper and lorazepam Got MVI IVF in ED Continue thiamine, folic acid even on discharged Counselled patient extensively on need to quit alcohol use. She stated she can stop on her own and declined any resources at this time. (2) Ambulatory dysfunction: Reports chronic intermittent tremors that worsened recently Based on history, likely related to chronic alcohol use. Possible wernicke Continue thiamine and folate PT OT evaluated and recommended rehab. However, patient declined this and stated she can follow up outpatient PT after seeing her PCP. Counselled extensively on fall precautions. (3) Transaminitis: AST 180, ALT 80, ALP 144, Tbli 1.1 on admission Much improved. Now AST 47, ALT 45, ALP 97. Had RUQ US 08/2018 revealing hepatic steatosis Likely related to alcohol use (4) Thrombocytopenia: History of chronic thrombocytopenia in the setting of alcohol abuse Platelet is 26 on admission Plavix has been suspended since admission Per H/P, Admitting Provider discussed with patient's vascular surgeon CLARISSA who agrees also with holding plavix Platelet count improving, now 62 today Patient has ecchymoses, subconjuctival hemorrhage on left eye which is improving Will continue to hold plavix even on discharge. To follow up outpatient with her doctors who will continue monitoring and advise her when to resume (5) Hypomagnesemia: Persistent requiring multiple iv and po repletion Will discharge on po magnesium PCP to continue to monitor (6) Hypokalemia: Also had hypophosphatemia These were repleted (7) Splenic artery aneurysm: S/P coil closure on 05/17/2018 Follows [facility] vascular. Was seen on 02/20/2019 Admitting provider discussed with CLARISSA Geronimo who discussed with Dr. Camara, recommends holding plavix for now until platelets recover Will follow up with vascular as outpt (8) HTN (hypertension): Stable Continue verapamil Total Time Total Time Spent Total Time Spent (In Minutes): 40 Total Time Includes: Examination of the Patient, Discharge Planning and Medication Reconciliation Discharge Plan Discharge Items Patient Disposition: Home - Self-Care Reason For Visit: ETOH WITHDRAWAL Discharge Diagnosis: Alcohol withdrawal Transaminitis Thrombocytopenia (low platelet) Electrolytes abnormalities with hypomagnesemia (low magnesium), hypokalemia (low potassium) Condition on Discharge: Fair Activity: Resume your previous activity Non-emergency contact: Primary Care Provider Call non-emergency contact if: your symptoms worsen Follow-up/Referrals: Comfort Mendoza, [Primary Care Provider] - (THE OFFICE WILL CALL YOU WITH A FOLLOW-UP APPOINTMENT.) Diet: Heart Healthy Addtl Attending Provider Instructions: Ms. Osborn You came to the hospital with shaking. You were evaluated and found to be in alcohol withdrawal. You were treated for this. You also noted to have low electrolytes which include magnesium, potassium. These were replenished. Your platelet level was noted to be very low with multiple bruises. Your Plavix is currently being held. Follow-up with your primary doctor and vascular doctors will advise you on when to resume this. You were counseled extensively on need to avoid alcohol. Please continue to take medication as prescribed daily and vitamins. You were evaluated by physical therapy for ambulatory dysfunction and recommended at some rehab which you declined at this time. You stated you will follow up with rehab outpatient with your Primary Doctor. Please follow-up with your primary doctor. It is a pleasure taking care of you Pending Studies at Discharge: No Stand-Alone Forms: My [facility] [employer], Smoking Cessation Medications and DC Order Prescriptions: New magnesium oxide 400 mg (241.3 mg magnesium) Tablet 400 mg PO QAM 7 Days Qty: 7 RF: 0 folic acid 1 mg Tablet 1 mg PO QAM 30 Days Qty: 30 RF: 0 thiamine HCl (vitamin B1) 100 mg tablet 100 mg PO DAILY Qty: 30 RF: 0 Continued fluticasone propion-salmeterol [Advair Diskus] 250-50 mcg/dose Blister With Device 1 inh INHALATION BID RF: 0 cetirizine [Zyrtec] 10 mg Tablet 10 mg PO DAILY PRN (Reason: Allergy Symptoms) RF: 0 triamterene-hydrochlorothiazid [Maxzide] 75-50 mg Tablet 1 tab PO DAILY RF: 0 Centrum Silver Women 8 mg iron-400 mcg-300 mcg Tablet 1 tab PO QAM RF: 0 simvastatin 20 mg tablet 20 mg PO HS RF: 0 albuterol sulfate 90 mcg/actuation Hfa Aerosol Inhaler 1 puff INHALATION DIRECTED PRN (Reason: Wheezing) RF: 0 calcium carbonate-vitamin D3 [Calcium 600 + D(3)] 600 mg(1,500mg) -400 unit Tablet 1 tab PO DAILY RF: 0 verapamil 360 mg capsule,ext rel. pellets 24 hr 360 mg PO DAILY RF: 0 Discontinued clopidogrel 75 mg tablet 75 mg PO QAM RF: 0 Discharge Orders: Discharge Order (Routine); Ordered 03/30/19 Ordered By: Tatyana Patterson Admission Data Admit Date/Time: 03/26/19 15:18 Attending Provider: Tatyana Patterson I. Admit Provider: Ayde Castillo Primary Care Provider: Comfort Mendoza Other Providers: Ayde Castillo Other Interventions: Discharge Summary Assessment (RN) Last Done: 03/30/19 10:28 DC Date/Time DO NOT enter until pt leaves facility: 03/30/19 11:00
== END 2019-03-30 11:00 | disposition home or self-care (01) | DRG 897 ==
LOC: ED 11:06 → 2S 15:18 → SUATTDRO 15:18 → 2S 17:19 → 2N 03-29 03:29